=== PATIENT | female | born 1965 | race Caucasian/White ===

== ENCOUNTER 2022-03-13 19:37 | Emergency (ER) | payer BC, OTHER ==
--- OUTSIDE RECORDS SUMMARY | 2022-03-13 19:40 | XMS REPORT | Continuity of Care Document ---
:1965 Author Organization [facility] t Address [address] [place] [address] [address]. [address] [place] [address] Care Team Providers Name Role Phone YIFAN LEGER Primary Care Physician Unavailable JOANNE SUN Attending Clinician Unavailable Joanne Dumas Attending Clinician JOANNE SUN Admitting Clinician Unavailable Payers Payer Name Policy Type Policy Number Effective Date Expiration Date [id number] 00:00:00 Problems Condition Condition Condition Status Onset Resolution Last Treating Co mments Source Name Details Category Date Date Treatment Clinician Date Encounter Encounter Disease Active 2006-05 Overview: [facility] for for 05-17 Formattin ity of routine routine 00:00: g of this [place] gynecologi gynecologi 00 note Me dical aura aura might be Branch examinatio examinatio different n n from the original. 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 Allergies, Adverse Reactions, Alerts Allergy Allergy Status Severity Reaction(s) Onset Inactive Treating Comm ents Source Name Type Date Date Clinician Penicill Drug Active Other - See Uni vers ins Allergy comments 08-26 ity of 00:00: [place] 00 Medical Branch CODEINE DRUG Active Low Palpitations Uni vers INGREDI 08-26 ity of 00:00: [place] 00 Medical Branch PENICILL Drug Active Low Palpitations Un rosa INS Class 08-26 ity of 00:00: [place] [facility] [place] Social History Social Habit Start Date Stop Date Quantity Comments Source Exposure to Not sure [facility] SARS-CoV-2 (event) Medica l Branch Sex Assigned At [birth year] [facility] 00:00:00 00:00:00 [facility] Smoking Status Start Date Stop Date Source Unknown if ever smoked [facility] Medications Ordered Filled Start Stop Current Ordering Indication Dosage Frequency Signature Comments Components Source Medication Medication Date Date Medication? Clinician (SIG) Name Name morpHINE 2020-05- No 4mg 4 mg, Slow [place] injection 4 05-14 IV Push, ity of mg 00:00: 23:48 ONCE, 1 [place] 00 :00 dose, On Medical [place] Branch 03/13/21 at 1800, STAT ondansetron 2020-05- No 4mg 4 mg, Slow Univers (ZOFRAN 05-14 IV Push, ity of (PF)) 00:00: 23:48 ONCE, 1 [place] injection 4 00 :00 dose, On Medi aura mg [place] Branch 03/13/21 at 1800, LEATHA iopamidol 2020-05- No [id number] 100mL 100 mL, Univers (ISOVUE 05-13 Intravenou ity o f 370-500 mL) 22:50: 22:50 s, ONCE, 1 [place] injection 00 :00 dose, On Medica l 100 mL [place] Branch 03/13/21 at 1700, Routine Levothyroxi 2020-05 Yes Take by Un [place]sa ne 125 mcg 11 mouth. ity of capsule 18:10: [place] 46 Medical Branch pantoprazol 2020-05 Yes 40mg Take 40 mg Univers e 11 by mouth ity of (PROTONIX) 18:10: daily. [place] 40 mg EC 46 Medical tablet Branch PREMARIN 2020-05- No None Univers ORAL 05-13 Entered ity of 16:14: 00:00 [place] 24 :00 [facility] traMADoL 50 2020-05 Yes [id number] 50mg Take 1 Univ ers mg tablet 11 tablet by ity o f 00:00: mouth [place] 00 every 6 Medical (six) Branch hours as needed for Pain (scale 7-10). Indication s: acute pain ondansetron 2020-05 Yes [id number] 4mg Take 1 Univers (ZOFRAN 1-11 tablet by ity of ODT) 4 mg 00:00: mouth [place] disintegr 00 every 8 Medic al ing tablet (eight) Branch hours as needed for Nausea and Vomiting (N/V). DOCUSATE 2020- No 1 Cap Oral Un rosa CALCIUM 240 10-30 DAILY ity of MG ORAL CAP 00:00: 00:00 [place] 00 :00 Medical Branch IBUPROFEN 2020- No 1 tab PO Uni vers 600 MG ORAL 10-30 q4-6hrs ity of TAB 00:00: 00:00 prn pain [place] 00 :00 Medical Branch PROPOXYPHEN 2020- No 1 tab PO U nivers E 65 MG 10-30 q4-6hrs ity of ORAL CAP 00:00: 00:00 pr[place] pain [place] :[place] FERROUS 202- No 1 Tab Oral Uni vers SULFATE 300 10-30 TID MEALS it y of (60) MG 00:00: 00:00 [place] ORAL TAB 00 :00 Medical Branch CONJUGATED 2020- No 1 Tab Oral Univers ESTROGENS 10-30 DAILY ity of 0.3 MG ORAL 00:00: 00:00 [place] TAB 00 :00 Medical Branch Vital Signs Vital Name Observation Time Observation Value Comments Source Heart rate 2021-03-13 23:45:00 73 /min [facility] Respiratory rate 2021-03-13 23:45:00 28 /min [facility] Oxygen saturation in 2021-03-13 23:45:00 100 /min [facility] Arterial blood by [facility] Pulse oximetry Branch Systolic blood 2021-03-13 22:45:00 146 mm[Hg] [facility] Diastolic blood 2021-03-13 22:45:00 95 mm[Hg] [facility] Body temperature 2021-03-13 21:23:00 37.06 Gloria [facility] Body weight 2021-03-13 21:23:00 117.89 kg [facility] Procedures Procedure Date / Time Performed Performing Clinician Nirmala gonzalez CT ABDOMEN PELVIS W 2021-03-13 22:54:38 Joanne Sun [facility] CONTRAST [facility] URINALYSIS 2021-03-13 22:42:00 Joanne Sun [facility] LIPASE 2021-03-13 22:32:00 Joanne Sun [facility] COMP. METABOLIC PANEL 2021-03-13 22:32:00 Joanne Sun [facility] ([id number]) Medical [place] CBC WITH DIFF 2021-03-13 22:32:00 Joanne Sun [facility] NOTICE OF PRIVACY 2021-03-13 21:10:56 Doctor Unassigned, No [facility] PRACTICES Name Medical Branch Encounters Start End Encounter Admission Attending Care Care Encounter Source Date/Time Date/Time Type Type Clinicians Facility Department ID 2021-03-13 2021-03-13 [id number] Univers 15:26:00 18:20:00 [facility] 2021-03-13 2021-03-13 [facility] [id number] Univers 15:26:00 18:20:00 Joanne HERR [id number] i [facility] [id number] [facility] [id number] [place] [id number] Branch Results Test Description Test Time Test Comments Results Result Comments Source COMP. METABOLIC PANEL (31778) 2021-03-13 23:02:31 Test Item Value Reference Range Interpretation Comme nts NA (test code = 6904638261) 136 mmol/L 135-145 K (test code = 5515673023) 4.9 mmol/L 3.5-5.0 CL (test code = 2641147995) 99 mmol/L 98-108 CO2 TOTAL (test code = 9666029934) 26 mmol/L 23-31 AGAP (test code = 8195555285) 2-16 BUN (test code = 2190144009) 15 mg/dL 7-23 GLUCOSE (test code = 3568893349) 97 mg/dL 70-110 CREATININE (test code = 0.67 mg/dL 0.50-1.04 5582387590) TOTAL BILI (test code = 0.5 mg/dL 0.1-1.4 9566703677) CALCIUM (test code = 0261670731) 10.6 mg/dL 8.6-10.6 T PROTEIN (test code = 7967637189) 8.0 g/dL 6.3-8.2 ALBUMIN (test code = 4795331768) 4.5 g/dL 3.5-5.0 ALK PHOS (test code = 8990383789) 75 U/L 34-122 ALTv (test code = 1742-6) 29 U/L 5-35 AST(SGOT) (test code = 8659162341) 41 U/L 13-40 H eGFR (test code = 9667325466) mL/min/1.73m2 TRACI (test code = TRACI) Association of Glomerular Filtration Rate (GFR) and Staging of Kidney Disease* + +-------- + ------+| GFR (mL/min/1.73 m2) ?| With Kidney Damage ?| ?Without Kidney Damage+ +-- + +| ?>90 ?| ?Stage one ?| ? Normal ?+ +------- + -------+| ?60-89 ?| ?Stage two ?| ? Decreased GFR ? + +-------- + ------+| ?30-59 ?| ?Stage three ?| ? Stage three ? + +-------- + ------+| ?15-29 ?| ?Stage four ? | ? Stage four ?+ +------- + -------+| ?<15 (or dialysis) ? ?| ?Stage five ? | ? Stage five ?+ +------- + -------+ *Each stage assumes the associated GFR level has been in effect for at least three months. ?Stages 1 to 5, with or without kidney disease, indicate chronic kidney disease. Notes: Determination of stages one and two (with eGFR >59mL/min/1.73 m2) requires estimation of kidney damage for at least three months as defined by structural or functional abnormalities of the kidney, manifested by either:Pathological abnormalities or Markers of kidney damage (including abnormalities in the composition of the blood or urine or abnormalities in imaging tests). Lab Interpretation (test code = Abnormal 30741-4) [facility]10 Test Item Value Reference Range Interpretation Comments LIPASE (test code = 2100086516) 104 U/L 0-220 Lab Interpretation (test code = Normal 46462-3) [facility] WITH [id number] 22:41:06 Test Item Value Reference Range Interpretation Comments WBC (test code = See_Comment [Automated 6690-2) message] The sy stem which generated this result transmitted reference range : 4.30 - 11.10 10*3/?L. The reference range was not used to interpret this result as normal/abnormal . RBC (test code = See_Comment H [Automated 789-8) message] The sy stem which generated this result transmitted reference range : 3.93 - 5.25 10*6/?L. The reference range was not used to interpret this result as normal/abnormal . HGB (test code = 15.9 g/dL 11.6-15.0 H 718-7) HCT (test code = 48.8 % 35.7-45.2 H 4544-3) MCV (test code = 84.9 fL 80.6-95.5 787-2) MCH (test code = 27.7 pg 25.9-32.8 785-6) MCHC (test code = 32.6 g/dL 31.6-35.1 786-4) RDW-SD (test code = 41.5 fL 39.0-49.9 23923-0) RDW-CV (test code = 13.4 % 12.0-15.5 788-0) PLT (test code = See_Comment H [Automated 777-3) message] The sy stem which generated this result transmitted reference range : 166 - 358 10*3/ ?L. The reference r shemar was not used to interpret this result as normal/abnormal . MPV (test code = 10.4 fL 9.5-12.9 66951-4) NRBC/100 WBC (test See_Comment [Automat ed code = 4360287459) message] The system which generated this result transmitted reference range : 0.0 - 10.0 /100 WBCs. The refer ence range was not u sed to interpret th is result as normal/abnormal . NRBC x10^3 (test code <0.01 See_Comment [Auto mated = 9658407508) message] The s ystem which generated this result transmitted reference range : 10*3/?L. The reference range was not used to interpret this result as normal/abnormal . GRAN MAT (NEUT) % 77.1 % (test code = 770-8) IMM GRAN % (test code 0.40 % = 2347495099) LYMPH % (test code = 13.2 % 736-9) MONO % (test code = 7.1 % 5905-5) EOS % (test code = 1.4 % 713-8) BASO % (test code = 0.8 % 706-2) GRAN MAT x10^3(ANC) 7.14 10*3/uL 1.88-7.09 H (test code = 7761203693) IMM GRAN x10^3 (test 0.04 10*3/uL 0.00-0.06 code = 5207520389) LYMPH x10^3 (test code 1.22 10*3/uL 1.32-3.29 L = 731-0) MONO x10^3 (test code 0.66 10*3/uL 0.33-0.92 = 742-7) EOS x10^3 (test code = 0.13 10*3/uL 0.03-0.39 711-2) BASO x10^3 (test code 0.07 10*3/uL 0.01-0.07 = 704-7) Lab Interpretation Abnormal (test code = 31412-7) [facility]"
--- NOTE | 2022-03-13 21:31 | RAD REPORT ---
EXAM DESCRIPTION: CTStone Protocol - 03/13/2022 8:51 pm CLINICAL HISTORY: right flank pain COMPARISON: No comparisons TECHNIQUE: CT of the abdomen and pelvis was performed. All CT scans are performed using dose optimization technique as appropriate and may include automated exposure control or mA/KV adjustment according to patient size. FINDINGS: Lower chest: No acute abnormality. Circumferentially thickened distal esophagus. Liver: No acute abnormality or suspicious lesions. Biliary: No biliary ductal dilatation. Cholecystectomy Stomach: Matilda-en-Y gastric bypass. Duodenum: No significant focal abnormality. Pancreas: No significant abnormality. Spleen: No significant abnormality. Adrenal: No suspicious lesions. Kidney/ureter: Mild right-sided hydroureteronephrosis secondary to a 5 mm stone just proximal to the right UVJ. Probable wyct-[id number]-rfbcysq cysts in the left lower pole. Retroperitoneum: No retroperitoneal adenopathy. Vascular: No aneurysm. Bowel: No significant focal abnormality. Peritoneum: No ascites or free air. Bladder: Grossly unremarkable. Reproductive: No adnexal masses. Bones: No acute fracture. Other: n/a IMPRESSION: Mild right-sided hydroureteronephrosis secondary to a 5 mm stone just proximal proximal to the right UVJ.
[2022-03-13] MEDS ORDERED: TAMSULOSIN 0.4 MG SR CAP ONE (22:44)
[2022-03-13] MEDS ORDERED: NA CHLORIDE 0.9% 1,000 ML ONE (22:44)
[2022-03-13] MEDS ORDERED: HYDROMORPHONE HCL 1 MG/ML INJ ONE (22:44)
[2022-03-13] MEDS ORDERED: CEFTRIAXONE 1000 MG/VIAL ONE (22:44)
[2022-03-13 23:12] LABS: Hematocrit 41.1 % (36.0-45.0); Lymphocytes % 22.5 % (15.3-44.8); MCV 84.8 fL (80-100); RBC Red Blood Cell Count 4.85 M/uL (3.86-4.86)
[2022-03-13 23:14] LABS: Urine Blood 2+ (Negative); Urine Glucose Negative (Negative); Urine Protein Negative (Negative); Urine Specific Gravity >=1.030 (1.005-1.030); Urine pH 5.5 (5.0-7.0)
[2022-03-13 23:20] LABS: Urine Bacteria <20 /HPF (<20); Urine Crystals Unidentified Few /HPF (None Seen); Urine Mucus Slight /HPF (None Seen); Urine RBC 21-50 /HPF (None Seen)
[2022-03-13 23:25] LABS: Urine Specific Gravity/Preg >1.030 (1.005-1.030)
[2022-03-13] MEDS ORDERED: ONDANSETRON 4 MG/2 ML VIAL ONE (23:40)
[2022-03-13 23:54] LABS: Albumin 3.6 g/dL (3.4-5.0); Bilirubin Total 0.3 mg/dL (0.2-1.0); Potassium 4.3 mmol/L (3.5-5.1); Protein, Total 7.4 g/dL (6.4-8.2)
--- NOTE | 2022-03-14 00:10 | EDPHYS ---
Physician Documentation [facility] Name: Dory Salvador Age: 56 yrs Sex: Female : 1965 Arrival Date: 03/13/2022 Time: 19:40 Bed 25 Private MD: ED Physician Brandon Guevara HPI: 03/13 20:35 This 56 yrs old Female presents to ER via Ambulatory with complaints of Abdominal Pain, cp Back Pain. 20:35 The patient presents with abdominal pain right lower quadrant, right lower flank. cp Onset: The symptoms/episode began/occurred this morning, and became worse today. The symptoms radiate to right back. 20:35 Associated signs and symptoms: Pertinent positives: nausea, Pertinent negatives: blood cp in stools, chest pain, constipation, dysuria, fever, vomiting. 20:35 The symptoms are described as waxing/waning. Severity of pain: in the emergency cp department the pain has improved. Historical: - Allergies: 19:50 PENICILLINS; iw - Home Meds: 19:51 levothyroxine 112 mcg tab 2 tabs once daily [Active]; Nitro ointment - NJ [Active]; iw - PMHx: 19:51 Ulcerative Colitis; iw - Immunization history:: Adult Immunizations unknown. - Social history:: Smoking status: unknown. ROS: 20:40 Constitutional: Negative for body aches, chills, fever, poor PO intake. cp 20:40 Eyes: Negative for injury, pain, redness, and discharge. cp 20:40 ENT: Negative for drainage from ear(s), ear pain, sore throat, difficulty swallowing, difficulty handling secretions. 20:40 Cardiovascular: Negative for chest pain, edema, palpitations. 20:40 Respiratory: Negative for cough, shortness of breath, wheezing. 20:40 Abdomen/GI: Positive for abdominal pain, nausea, of the posterior aspect of right lateral abdomen and anterior aspect of right lateral abdomen, Negative for vomiting, diarrhea, constipation, anorexia. 20:40 Skin: Negative for cellulitis, rash. 20:40 Neuro: Negative for altered mental status, headache, weakness. 20:40 All other systems are negative. Exam: 20:45 Constitutional: The patient appears in no acute distress, alert, awake, cp non-diaphoretic, non-toxic, well developed, well nourished. 20:45 Head/Face: Normocephalic, atraumatic. cp 20:45 Eyes: Periorbital structures: appear normal, Conjunctiva: normal, no exudate, no injection, Sclera: no appreciated abnormality, Lids and lashes: appear normal, bilaterally. 20:45 ENT: External ear(s): are unremarkable, Nose: is normal, Mouth: Lips: moist, Oral mucosa: pink and intact, moist, Posterior pharynx: Airway: no evidence of obstruction, patent. 20:45 Chest/axilla: Inspection: normal. 20:45 Cardiovascular: Rate: normal, Rhythm: regular, Edema: is not appreciated, JVD: is not appreciated. 20:45 Respiratory: the patient does not display signs of respiratory distress, Respirations: normal, no use of accessory muscles, no retractions, labored breathing, is not present, Breath sounds: are clear throughout, no decreased breath sounds, no stridor, no wheezing. 20:45 Abdomen/GI: Inspection: abdomen appears normal, Bowel sounds: active, all quadrants, Palpation: soft, in all quadrants, moderate abdominal tenderness, in the posterior aspect of right lateral abdomen and anterior aspect of right lateral abdomen, rebound tenderness, is not appreciated, involuntary guarding, is not appreciated. 20:45 Back: CVA tenderness, is absent. 20:45 Neuro: Orientation: to person, place \T\ time. Mentation: is normal, Motor: moves all fours, strength is normal, Sensation: is normal, Gait: is steady. 23:10 ECG was reviewed by the Attending Physician. cp 23:10 Skin: cellulitis, is not appreciated, no rash present. cp Vital Signs: 19:48 BP 157 / 94; Pulse 69; Resp 18; Temp 97.9; Pulse Ox 98% on R/A; Weight 102.06 kg; iw Height 5 ft. 6 in. (167.64 cm); Pain 5/10; 23:00 BP 102 / 92; Pulse 58; Resp 18; Pulse Ox 98% on R/A; em6 19:48 Body Mass Index 36.32 (102.06 kg, 167.64 cm) iw MDM: 20:06 Patient medically screened. [facility] 03/14 00:09 Data reviewed: vital signs, nurses notes, lab test result(s), radiologic studies, CT cp scan. 00:09 Differential diagnosis: Pyelonephritis, Ureterolithiasis, urinary tract infection. cp Counseling: I had a detailed discussion with the patient and/or guardian regarding: the historical points, exam findings, and any diagnostic results supporting the discharge/admit diagnosis, lab results, radiology results, to return to the emergency department if symptoms worsen or persist or if there are any questions or concerns that arise at home. Response to treatment: the patient's symptoms have markedly improved after treatment, and as a result, I will discharge patient. 03/13 20:32 Order name: CBC with Diff; Complete Time: 23:44 cp 03/13 23:44 Interpretation: Normal except: PLT 447. 03/13 20:32 Order name: CMP; Complete Time: 23:56 03/13 23:56 Interpretation: Normal except: CL 109; GFR 89; GLOB 3.8; A/G 0.9. 03/13 20:32 Order name: Lipase; Complete Time: 23:56 03/13 23:56 Interpretation: LIP 213; Reviewed. 03/13 20:32 Order name: Urine Microscopic Only; Complete Time: 23:44 03/13 23:44 Interpretation: Normal except: URBC 21-50. 03/13 23:14 Order name: Urine Dipstick-Ancillary; Complete Time: 23:44 EDMS 03/13 23:57 Interpretation: Normal except: UBLD 2+. 03/13 23:16 Order name: Urine --Ancillary (enter results); Complete Time: 23:44 mw2 03/13 23:45 Interpretation: Reviewed. 03/13 20:32 Order name: IV Saline Lock; Complete Time: 23:07 03/13 20:32 Order name: Labs collected and sent; Complete Time: 23:07 03/13 20:32 Order name: CT Stone Protocol; Complete Time: 22:01 03/13 20:32 Order name: Urine Dipstick-Ancillary (obtain specimen); Complete Time: 23:07 03/13 20:32 Order name: Urine Test (obtain specimen); Complete Time: 23:07 03/13 22:30 Order name: PO challenge; Complete Time: 23:14 cp EC/11 23:10 Rate is 47 beats/min. Rhythm is regular. NJ interval is normal. QRS interval is normal. cp QT interval is prolonged at 512 msec. T waves are Inverted in lead aVR. Interpreted by me. Reviewed by me. Administered Medications: 23:07 Drug: Dilaudid (HYDROmorphone) 1 mg Route: IVP; Site: right antecubital; em6 03/14 00:02 Follow up: Response: No adverse reaction; RASS: Alert and Calm (0) em6 03/13 23:07 Drug: Rocephin (cefTRIAXone) 1 grams Route: IV; Rate: calculated rate; Site: right em6 antecubital; 23:30 Follow up: Response: No adverse reaction em6 23:07 Drug: Flomax (tamsulosin) 0.4 mg Route: PO; em6 23:30 Follow up: Response: No adverse reaction em6 23: Drug: NS 0.9% 1000 ml Route: IV; Rate: 500 ml/hr; Site: right antecubital; em6 03/14 00:03 Follow up: Response: No adverse reaction; IV Status: Completed infusion; IV Intake: em6 1000ml 03/13 23:41 Drug: Zofran (Ondansetron) 4 mg Route: IVP; Site: right antecubital; em6 03/14 00:03 Follow up: Response: No adverse reaction em6 Disposition Summary: 03/14/22 00:09 Discharge Ordered Location: Home cp Problem: new cp Symptoms: have improved cp Condition: Stable cp Diagnosis - Calculus of ureter - right cp Followup: cp - With: Bam Han MD - When: 2 - 3 days - Reason: Recheck today's complaints Discharge Instructions: - Discharge Summary Sheet cp - Kidney Stones cp - Renal Colic cp - Form - Excuse from Work, School, or Physical Activity cp Forms: - Medication Reconciliation Form cp - Thank You Letter cp - Antibiotic Education cp - Prescription Opioid Use cp Prescriptions: - Flomax 0.4 mg Oral capsule - take 1 capsule by ORAL route once daily for 5 days 1/2 hour following the same cp meal each day; 5 capsule; Refills: 0, Product Selection Permitted - Zofran 4 mg Oral Tablet - take 1 tablet by ORAL route every 12 hours As needed; 20 tablet; Refills: 0, cp Product Selection Permitted - Tylenol-Codeine #3 300 mg-30 mg Oral - take 2 tablet by ORAL route every 6-8 hours; 16 tablet; Refills: 0, Product cp Selection Permitted Addendum: 03/19/2022 09:54 Co-signature as Attending Physician, Brandon Guevara MD I agree with the assessment and c murphy plan of care. Signatures: Dispatcher [employer] EDBrandon Lancaster MD MD cha Williams, Irene, RN RN iw Brandon Cohn, PA PA Jackie Butler RN RN em6 Corrections: (The following items were deleted from the chart) 03/13 23:56 23:56 Normal except: CL 109; GFR 89. cp cp
--- NOTE | 2022-03-14 00:10 | ER ---
Nurse's Notes [facility] Name: Dory Salvador Age: 56 yrs Sex: Female : 1965 Arrival Date: 03/13/2022 Time: 19:40 Bed 25 Private MD: Diagnosis: Calculus of ureter-right Presentation: 03/13 19:48 Chief complaint: RLQ pain and nausea since yesterday, pain started to radiates to right iw flank this afternoon. Coronavirus screen: At this time, the client does not indicate any symptoms associated with coronavirus-19. Ebola Screen: No symptoms or risks identified at this time. Initial Sepsis Screen: Does the patient meet any 2 criteria? No. Patient's initial sepsis screen is negative. Does the patient have a suspected source of infection? No. Patient's initial sepsis screen is negative. Initial Sepsis Screen: Does the patient meet any 2 criteria?. Onset of symptoms was March 12, 2022. 19:48 Method Of Arrival: Ambulatory iw 19:48 Acuity: JAZMIN 3 iw 22:30 Risk Assessment: Do you want to hurt yourself or someone else? Patient reports no em6 desire to harm self or others. Historical: - Allergies: 19:50 PENICILLINS; iw - Home Meds: 19:51 levothyroxine 112 mcg tab 2 tabs once daily [Active]; Nitro ointment - IA [Active]; iw - PMHx: 19:51 Ulcerative Colitis; iw - Immunization history:: Adult Immunizations unknown. - Social history:: Smoking status: unknown. Screenin:30 Abuse screen: Denies threats or abuse. Nutritional screening: No deficits noted. em6 Tuberculosis screening: No symptoms or risk factors identified. Fall Risk IV access (20 points). Total Anguiano Fall Scale indicates No Risk (0-24 pts). Assessment: 22:30 General: Appears comfortable, Behavior is cooperative. Pain: Complains of pain in em6 posterior aspect of right lateral abdomen and anterior aspect of right lateral abdomen Pain does not radiate. Pain currently is 10 out of 10 on a pain scale. Quality of pain is described as sharp. Neuro: Level of Consciousness is awake, alert, obeys commands, Oriented to person, place, time, situation. Cardiovascular: Heart tones present Patient's skin is warm and dry. Rhythm is sinus rhythm. Respiratory: Airway is patent Respiratory effort is even, unlabored, Respiratory pattern is regular, symmetrical, Breath sounds are clear bilaterally. GI: Abdomen is non-distended, Bowel sounds present X 4 quads. Abd is soft and non tender X 4 quads. : No signs and/or symptoms were reported regarding the genitourinary system. EENT: No signs and/or symptoms were reported regarding the EENT system. Derm: No signs and/or symptoms reported regarding the dermatologic system. Musculoskeletal: Circulation, motion, and sensation intact. Range of motion: intact in all extremities. 23:30 Reassessment: Patient appears in no apparent distress at this time. No changes from em6 previously documented assessment. Patient and/or family updated on plan of care and expected duration. Pain level reassessed. Patient is alert, oriented x 3, equal unlabored respirations, skin warm/dry/pink. Vital Signs: 19:48 BP 157 / 94; Pulse 69; Resp 18; Temp 97.9; Pulse Ox 98% on R/A; Weight 102.06 kg; iw Height 5 ft. 6 in. (167.64 cm); Pain 5/10; 23:00 BP 102 / 92; Pulse 58; Resp 18; Pulse Ox 98% on R/A; em6 19:48 Body Mass Index 36.32 (102.06 kg, 167.64 cm) iw ED Course: 19:40 Patient arrived in ED. ss 19:50 Triage completed. iw 19:50 Arm band placed on. iw 19:57 Brandon Cohn PA is PHCP. cp 19:57 Brandon Guevara MD is Attending Physician. cp 20:52 CT Stone Protocol In Process Unspecified. EDMS 21:52 Jackie Martínez, RN is Primary Nurse. em6 22:00 Placed in gown. Bed in low position. Call light in reach. Side rails up X2. Cardiac em6 monitor on. Pulse ox on. NIBP on. Warm blanket given. 22:30 Inserted saline lock: 20 gauge in right antecubital area, using aseptic technique. em6 Blood collected. 23:14 Urine Microscopic Only Sent. em6 12 00:09 Bam Han MD is Referral Physician. cp 00:31 No provider procedures requiring assistance completed. IV discontinued, intact, tw5 bleeding controlled, No redness/swelling at site. Pressure dressing applied. Administered Medications: 03/13 23:07 Drug: Dilaudid (HYDROmorphone) 1 mg Route: IVP; Site: right antecubital; em6 11 00:02 Follow up: Response: No adverse reaction; RASS: Alert and Calm (0) em6 03/13 23:07 Drug: Rocephin (cefTRIAXone) 1 grams Route: IV; Rate: calculated rate; Site: right em6 antecubital; 23:30 Follow up: Response: No adverse reaction em6 23:07 Drug: Flomax (tamsulosin) 0.4 mg Route: PO; em6 23:30 Follow up: Response: No adverse reaction em6 23:07 Drug: NS 0.9% 1000 ml Route: IV; Rate: 500 ml/hr; Site: right antecubital; em6 03/14 00:03 Follow up: Response: No adverse reaction; IV Status: Completed infusion; IV Intake: em6 1000ml 03/13 23:41 Drug: Zofran (Ondansetron) 4 mg Route: IVP; Site: right antecubital; em6 03/14 00:03 Follow up: Response: No adverse reaction em6 Medication: 00:31 VIS not applicable for this client. tw5 Intake: 00:03 IV: 1000ml; Total: 1000ml. em6 Outcome: 00:09 Discharge ordered by . jenny 00:31 Discharged to home ambulatory, with family. tw5 00:31 Condition: improved 00:31 Discharge instructions given to patient, Instructed on discharge instructions, follow up and referral plans. medication usage, Demonstrated understanding of instructions, follow-up care, wound care, Prescriptions given X 3. 00:31 Patient left the ED. tw5 Signatures: Dispatcher [employer] EDMS Maria Del Carmen Alegria RN RN Sravanthi Montemayor RN RN ss Page, Corey, PA PA cp Wood, Tiffany tw5 Jackie Martínez RN RN em6 Corrections: (The following items were deleted from the chart) 00:02 03/13 23:30 Response: No adverse reaction em6 em6
[2022-03-14 01:13] VITALS: TEMP 97.9; O2SAT 98
[2022-03-14 01:15] VITALS: BP 102/92
--- NOTE | 2022-03-17 08:28 | EKG ---
Test Date: 2022-03-13 Test Time: 23:03:35 Vice President Education: MEASUREMENT RESULTS: Intervals: Rate: 47 MD: 182 QRSD: 88 QT: 512 QTc: 453 [place]: P: 48 MD: 182 QRS: 36 T: 60 INTERPRETIVE STATEMENTS: Sinus bradycardia Possible Anterior infarct, age undetermined Abnormal ECG Compared to ECG 06/24/2008 09:42:49 Myocardial infarct finding now present Sinus rhythm no longer present Electronically Signed On 03-17-22 08:20:47 CAPACITY PLANNING ENGINEER by Gonzalez Jeffers
== END 2022-03-14 00:31 | disposition home or self-care (01) ==
LOC: ER 19:37
DX: N20.1 Calculus of ureter (principal); Z88.0 Allergy status to penicillin
CPT/HCPCS: 96361; 93005; 85025; 36415; 81025; 83690; 80053; 76377; 74176; 96375; 96374; 99284; J1170; J7030; J2405; 81003; 81015

== ENCOUNTER 2022-04-14 18:19 | Emergency (ER) | payer OTHER ==
--- OUTSIDE RECORDS SUMMARY | 2022-04-14 18:22 | XMS REPORT | Continuity of Care Document ---
:[address] [facility] t Address [address] [place] [address] Care Team Providers Name Role Phone YIFAN LEGER Primary Care Physician Unavailable JEWEL SALAMANCA Attending Clinician Unavailable JOMAR SUN Attending Clinician Unavailable Jomar Dumas Attending Clinician JOMAR SUN Admitting Clinician Unavailable Payers Payer Name Policy Type Policy Number Effective Date Expiration Date S izzy [facility] [id number] 2019 00:00:00 Problems Condition Condition Condition Status Onset Resolution Last Treating Co mments Source Name Details Category Date Date Treatment Clinician Date Encounter Encounter Disease Active 2006-05 Overview: Univers for for 05-17 Formattin ity of routine routine 00:00: g of this [place] gynecologi gynecologi 00 note Me dical aura aura might be Branch examinatio examinatio different n n from the original. 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 Utility [id number] Renal Problem Common colic on [facility] right side [facility] [id number] Hydronephr Problem Com mon osis, [facility] right [facility] [id number] Ureterolit Problem Com mon hiasis [facility] [id number] Kidney Problem Common stone [facility] Allergies, Adverse Reactions, Alerts Allergy Allergy Status Severity Reaction(s) Onset Inactive Treating Comm ents Source Name Type Date Date Clinician Penicill Drug Active Other - See Uni vers ins Allergy comments 08-26 ity of 00:00: [place] 00 [facility] Branch CODEINE DRUG Active Low Palpitations Uni vers INGREDI 08-26 ity of 00:00: [place] 00 Medical [place] PENICILL Drug Active Low Palpitations Un rosa INS Class 08-26 ity of :00: 00 [facility] penicill penicill Active Unknown Commo n in V in V [facility] Social History Social Habit Start Date Stop Date Quantity Comments Source History of Tobacco Use Co mmon [facility] Sex Assigned At Com [facility] Exposure to SARS-CoV-2 Not sure [facility] [place] (event) [facility] Smoking Status Start Date Stop Date Source Unknown if ever smoked Universit y [facility] Former Smoker 2022-04-08 00:00:00 2022-04-08 00:00:00 [facility] nter Medications Ordered Filled Start Stop Current Ordering [...] 03/13/21 at 1800, LEATHA iopamidol 2020-05- No [id number] 100mL 100 mL, Univers (ISOVUE 05-13 Intravenou ity o f 370-500 mL) 22:50: 22:50 s, ONCE, 1 [place] injection 00 :00 dose, On Medica l 100 mL [place] Branch 03/13/21 at 1700, Routine Levothyroxi 2020-05 Yes Take by Uni vers ne 125 mcg -11 mouth. ity of capsule 18:10: [place] 46 Medical Branch pantoprazol 2020-05 Yes 40mg Take 40 mg Univers e 11 by mouth ity of (PROTONIX) 18:10: daily. [place] 40 mg EC 46 Medical tablet Branch PREMARIN 2020-05- No None Univers ORAL 05-13 Entered ity of 16:14: 00:00 [place] 24 :00 Medical Branch traMADoL 50 2020-05 Yes [id number] 50mg Take 1 Univ ers mg tablet 05-13 tablet by ity o f 00:00: mouth [place] 00 every 6 Medical (six) Branch hours as needed for Pain (scale 7-10). Indication s: acute pain ondansetron 2020-05 Yes [id number] 4mg Take 1 Univers (ZOFRAN 05-13 tablet by ity of ODT) 4 mg 00:00: mouth [place] disintegrat 00 every 8 Medic al ing tablet [...] [place] Branch FERROUS 2020- No 1 Tab Oral Uni vers SULFATE 300 10-30 TID MEALS it y of (60) MG 00:00: 00:00 [place] ORAL TAB 00 :00 Medical Branch CONJUGATED 2020- No 1 Tab Oral Univers ESTROGENS 6-30 11-11 DAILY ity of 0.3 MG ORAL 00:00: 00:00 [place] TAB 00 :00 Medical Branch Levothyroxi Levothyroxi No Levothyrox ne Sodium ne Sodium ine Sodium Flomax Flomax No Flomax LISINOPRIL LISINOPRIL No LISINOPRIL Nitroglycer Nitroglycer No Nitroglyce in in rin tramadol tramadol No tramadol Nitroglycer Nitroglycer No Nitroglyce in in rin LISINOPRIL LISINOPRIL No LISINOPRIL Levothyroxi Levothyroxi No Levothyrox ne Sodium ne Sodium ine Sodium tramadol tramadol No tramadol Flomax Flomax No Flomax Vital Signs Vital Name Observation Time Observation Value Comments Source height 2022-04-08 16:00:00 66 [in_i] [facility] weight 2022-04-08 16:00:00 222 [lb_av] [facility] temperature 2022-04-08 16:00:00 98.6 [degF] [facility] bmi 2022-04-08 16:00:00 35.83 kg/m2 [facility] oximetry 2022-04-08 16:00:00 98 % [facility] respiratory rate 2022-04-08 16:00:00 18 /min Comm on [facility] blood pressure 2022-04-08 16:00:00 136 mm[Hg] [facility] - systolic [facility] blood pressure 2022-04-08 16:00:00 87 mm[Hg] [facility] - diastolic [facility] height 2022-03-18 16:15:00 66 [in_i] [facility] weight 2022-03-18 16:15:00 231.8 [lb_av] [facility] temperature 2022-03-18 16:15:00 98.1 [degF] [facility] bmi 2022-03-18 16:15:00 37.41 kg/m2 [facility] oximetry 2022-03-18 16:15:00 98 % Common S pirit - [facility] respiratory rate 2022-03-18 16:15:00 18 /min Comm on [facility] blood pressure 2022-03-18 16:15:00 166 mm[Hg] [facility] - systolic [facility] blood pressure 2022-03-18 16:15:00 85 mm[Hg] [facility] - diastolic [facility] Heart rate 2021-03-13 23:45:00 73 /min [facility] Respiratory rate 2021-03-13 23:45:00 28 /min [facility] Oxygen saturation in 2021-03-13 23:45:00 100 /min [facility] Arterial blood by [facility] Pulse oximetry Branch Systolic blood 2021-03-13 22:45:00 146 mm[Hg] [facility] Diastolic blood 2021-03-13 22:45:00 95 mm[Hg] [facility] Body temperature 2021-03-13 21:23:00 37.06 Gloria [facility] Body weight 2021-03-13 21:23:00 117.89 kg [facility] Procedures Procedure Date / Time Performed Performing Clinician Nirmala gonzalez CT ABDOMEN PELVIS W 2021-03-13 22:54:38 Jomar Sun [facility] CONTRAST [facility] URINALYSIS 2021-03-13 22:42:00 Jomar Sun [facility] LIPASE 2021-03-13 22:32:00 Jomar Sun [facility] COMP. METABOLIC PANEL 2021-03-13 22:32:00 Jomar Sun [facility] ([id number]) [facility] CBC WITH DIFF 2021-03-13 22:32:00 Jomar Sun [facility] NOTICE OF PRIVACY 2021-03-13 21:10:56 Doctor Unassigned, No Univ [facility] PRACTICES Name Medical Branch Encounters Start End Encounter Admission Attending Care Care Encounter Source Date/Time Date/Time Type Type Clinicians Facility Department ID 2022-03-[address] [facility] [id number] Common 15:00:05 JEWEL [id number] [facility] 2022-04-08 2022-04-08 OFFICE STLMLC STLC [id number] Co mmon 00:00:00 00:00:00 VISIT EST Spir it PT LEVEL 3 - [facility] 2022-03-18 2022-03-18 OFFICE STLMLC STLMLC [id number] Co mmon 00:00:00 00:00:00 VISIT NEW Spir it PT LEVEL 3 - [facility] 2021-03-13 2021-03-[address] [facility] ERT [id number] Univers 15:26:00 18:20:00 JOMAR jeronimoy of [facility] 2021-03-13 2021-03-13 Emergency [facility] [id number] Univers 15:26:00 18:20:00 Jomar Olguin [place] [id number] i ty [facility] [id number] [facility] [id number] [address] Results Test Description Test Time Test Comments Results Result Comments Source COMP. METABOLIC PANEL (21225) 2021-03-13 23:02:31 Test Item Value Reference Range Interpretation Comme nts NA (test code = 8758835522) 136 mmol/L 135-145 K (test code = 7674835171) 4.9 mmol/L 3.5-5.0 CL (test code = 3696415529) 99 mmol/L 98-108 CO2 TOTAL (test code = 4166300889) 26 mmol/L 23-31 AGAP (test code = 9060355752) 2-16 BUN (test code = 0846138142) 15 mg/dL 7-23 GLUCOSE (test code = 8428579696) 97 mg/dL 70-110 CREATININE (test code = 0.67 mg/dL 0.50-1.04 9233059918) TOTAL BILI (test code = 0.5 mg/dL 0.1-1.7 6010192284) CALCIUM (test code = 6383971869) 10.6 mg/dL 8.6-10.6 T PROTEIN (test code = 5547894792) 8.0 g/dL 6.3-8.2 ALBUMIN (test code = 9207851414) 4.5 g/dL 3.5-5.0 ALK PHOS (test code = 6092522140) 75 U/L 34-122 ALTv (test code = 1742-6) 29 U/L 5-35 AST(SGOT) (test code = 8682531707) 41 U/L 13-40 H eGFR (test code = 9603768988) mL/min/1.73m2 TRACI (test code = TRACI) Association [...] tests). Lab Interpretation (test code = Abnormal 13593-7) [facility] Test Item Value Reference Range Interpretation Comments LIPASE (test code = 7221200807) 104 U/L 0-220 Lab Interpretation (test code = Normal 63757-5) [facility] [id number] 22:41:06 Test Item Value Reference Range Interpretation [...] RDW-SD (test code = 41.5 fL 39.0-49.9 46202-1) RDW-CV (test code = 13.4 % 12.0-15.5 788-0) PLT (test code = See_Comment H [Automated 777-3) message] The sy stem which generated this result transmitted reference range : 166 - 358 10*3/ ?L. The reference r shemar was not used to interpret this result as normal/abnormal . MPV (test code = 10.4 fL 9.5-12.9 52618-2) NRBC/100 WBC (test See_Comment [Automat ed code = 9953254771) message] The system which generated this result transmitted reference range : 0.0 - 10.0 /100 WBCs. The refer ence range was not u sed to interpret th is result as normal/abnormal . NRBC x10^3 (test code <0.01 See_Comment [Auto mated = 4179439306) message] The s ystem which generated this result transmitted reference range : 10*3/?L. The reference range was not used to interpret this result as normal/abnormal . GRAN MAT (NEUT) % 77.1 % (test code = 770-8) IMM GRAN % (test code 0.40 % = 8312595806) LYMPH % (test code = 13.2 % 736-9) MONO % (test code = 7.1 % 5905-5) EOS % (test code = 1.4 % 713-8) BASO % (test code = 0.8 % 706-2) GRAN MAT x10^3(ANC) 7.14 10*3/uL 1.88-7.09 H (test code = 5148475343) IMM GRAN x10^3 (test 0.04 10*3/uL 0.00-0.06 code = 3097637740) LYMPH x10^3 (test code 1.22 10*3/uL 1.32-3.29 L = 731-0) MONO x10^3 (test code 0.66 10*3/uL 0.33-0.92 = 742-7) EOS x10^3 (test code = 0.13 10*3/uL 0.03-0.39 711-2) BASO x10^3 (test code 0.07 10*3/uL 0.01-0.07 = 704-7) Lab Interpretation Abnormal (test code = 77010-6) [facility]"
[2022-04-14] MEDS ORDERED: NA CHLORIDE 0.9% 1,000 ML ONE (19:32)
[2022-04-14] MEDS ORDERED: ONDANSETRON 4 MG/2 ML VIAL ONE (19:32)
[2022-04-14] MEDS ORDERED: KETOROLAC 30 MG/ML INJ ONE (19:32)
[2022-04-14 19:37] LABS: Absolute Lymphocytes (CBC) 1.6 K/uL (0.7-4.9); Hematocrit 43.6 % (36.0-45.0); Lymphocytes % 21.9 % (15.3-44.8); MCV 85.6 fL (80-100); MPV 8.4 fL (7.6-11.3); RBC Red Blood Cell Count 5.09 M/uL (3.86-4.86)
[2022-04-14] MEDS ORDERED: MAGNESIUM SULFATE 1 gm IVPB 1 GM/100 ML BAG IV ONE (20:03)
[2022-04-14] MEDS ORDERED: TAMSULOSIN 0.4 MG SR CAP ONE (20:03)
[2022-04-14 20:17] LABS: Potassium 3.9 mmol/L (3.5-5.1)
--- NOTE | 2022-04-14 20:35 | RAD REPORT ---
EXAM DESCRIPTION: CT - Abdomen Pelvis Wo Contrast - 04/14/2022 8:19 pm CLINICAL HISTORY: Abdominal pain. Right flank pain COMPARISON: Stone Protocol dated 03/13/2022 TECHNIQUE: CT imaging of the abdomen and pelvis was performed without contrast. Solid organ, bowel a nd vascular assessment is limited due to lack of IV and oral contrast. All CT scans are performed using dose optimization technique as appropriate and may include automated exposure control or mA/KV adjustment according to patient size. FINDINGS: The lower lung anderson are clear.Postsurgical changes are present about the stomach with a small hiatal hernia. Cholecystectomy clips. The liver, spleen, pancreas, adrenal glands are within normal limits for a limited non-contrast exami nation.18 mm cyst with a small internal calcification is seen posterior cortex left kidney inferiorly . Moderate right hydronephrosis and hydroureter is present caused by 5 mm stone at the right UVJ. No bowel obstruction, free air, free fluid or abscess. The appendix is normal. The osseous structures are within normal limits. IMPRESSION: 5 mm stone at the right UVJ resulting in moderate right hydronephrosis and hydroureter. A limited non-contrast examination was performed as detailed.
[2022-04-14] MEDS ORDERED: MORPHINE 4 MG/ML SYR ONE (21:42)
--- NOTE | 2022-04-14 21:52 | ER ---
Nurse's Notes [facility] Name: Dory Salvador Age: 56 yrs Sex: Female : 1965 Arrival Date: 04/14/2022 Time: 18:21 Bed 2 Private MD: Diagnosis: Calculus of ureter Presentation: 04/14 18:30 Chief complaint: Patient states: right flank pain; known 5mm stone due for surgery jh5 however pain with frequency has come back x2 days. Coronavirus screen: Vaccine status: Patient reports receiving the 2nd dose of the covid vaccine. Client denies travel out of the [place] in the last 14 days. Ebola Screen: Patient negative for fever greater than or equal to 101.5 degrees Fahrenheit, and additional compatible Ebola Virus Disease symptoms Patient denies exposure to infectious person. Patient denies travel to an Ebola-affected area in the 21 days before illness onset. Initial Sepsis Screen: Does the patient meet any 2 criteria? No. Patient's initial sepsis screen is negative. Does the patient have a suspected source of infection? No. Patient's initial sepsis screen is negative. Risk Assessment: Do you want to hurt yourself or someone else? Patient reports no desire to harm self or others. 18:30 Method Of Arrival: Ambulatory [facility] 18:30 Acuity: JAZMIN 3 jh5 Triage Assessment: 18:31 General: Appears in no apparent distress. uncomfortable, Behavior is calm, cooperative, 5 appropriate for age. Pain: Complains of pain in right flank. Historical: - Allergies: 18:31 PENICILLINS; jh5 - PMHx: 18:31 ulcerative colitis; kidney stone; Hypertensive disorder; 5 - Immunization history:: Adult Immunizations up to date. - Social history:: Smoking status: Reported history of juuling and/or vaping. Screenin:18 Abuse screen: Denies threats or abuse. Nutritional screening: No deficits noted. jb4 Tuberculosis screening: No symptoms or risk factors identified. Fall Risk No fall in past 12 months (0 pts). IV access (20 points). Total Anguiano Fall Scale indicates No Risk (0-24 pts). 19:18 [facility] ED Fall Risk Assessment (Adult) History of falling in the last 3 months, jb4 including since admission No falls in past 3 months (0 pts) Confusion or Disorientation No (0 pts) Intoxicated or Sedated No (0 pts) Impaired Gait No (0 pts) Mobility Assist Device Used No (0 pt) Altered Elimination No (0 pt) Score/Fall Risk Level 0 - 2 = Low Risk. Assessment: 19:18 General: Appears in no apparent distress. comfortable, Behavior is calm, cooperative, jb4 appropriate for age. Pain: Complains of pain in right mid back Pain does not radiate. Pain currently is 8 out of 10 on a pain scale. Neuro: Level of Consciousness is awake, alert, obeys commands, Oriented to person, place, time, situation. Cardiovascular: Patient's skin is warm and dry. Respiratory: Airway is patent Respiratory effort is even, unlabored, Respiratory pattern is regular, symmetrical. GI: No signs and/or symptoms were reported involving the gastrointestinal system. : No signs and/or symptoms were reported regarding the genitourinary system. EENT: No signs and/or symptoms were reported regarding the EENT system. Derm: Skin is intact, Skin is pink, warm \T\ dry. Musculoskeletal: Circulation, motion, and sensation intact. Range of motion: intact in all extremities. 20:30 Reassessment: Patient appears in no apparent distress at this time. Patient and/or jb4 family updated on plan of care and expected duration. Pain level reassessed. Patient is alert, oriented x 3, equal unlabored respirations, skin warm/dry/pink. 22:06 Reassessment: Patient appears in no apparent distress at this time. Patient and/or jb4 family updated on plan of care and expected duration. Pain level reassessed. Patient is alert, oriented x 3, equal unlabored respirations, skin warm/dry/pink. Vital Signs: 18:30 BP 148 / 77; Pulse 76; Resp 18; Temp 98.8; Pulse Ox 98% ; Weight 99.79 kg; Height 5 ft. 5 6 in. (167.64 cm); Pain 10/10; 20:30 BP 113 / 96; Pulse 63; Resp 16; Pulse Ox 100% on R/A; jb4 22:00 BP 125 / 86; Pulse 55; Resp 16; Pulse Ox 98% on R/A; jb4 18:30 Body Mass Index 35.51 (99.79 kg, 167.64 cm) [facility] ED Course: 18:21 Patient arrived in ED. as 18:21 Pb Carney DO is Attending Physician. ms3 18:31 Triage completed. jh5 18:31 Arm band placed on right wrist. jh5 19:06 Attending Physician role handed off by Pb Carney DO rn 19:06 Brendan Lozano MD is Attending Physician. rn 19:18 Patient has correct armband on for positive identification. Placed in gown. Bed in low jb4 position. Call light in reach. Side rails up X 1. Client placed on continuous cardiac and pulse oximetry monitoring. NIBP monitoring applied. 19:18 Initial lab(s) drawn, by me, sent to lab. Inserted saline lock: 18 gauge in right jb4 antecubital area, using aseptic technique. Blood collected. 20:21 CT Abd/Pelvis - Without Contrast In Process Unspecified. EDMS 20:33 Ronny Pop, RN is Primary Nurse. jb4 21:51 Bam Han MD is Referral Physician. rn 22:08 No provider procedures requiring assistance completed. IV discontinued, intact, jb4 bleeding controlled, No redness/swelling at site. Pressure dressing applied. Administered Medications: 19:43 Drug: NS 0.9% 1000 ml Route: IV; Rate: 1 bolus; Site: right antecubital; jb4 20:45 Follow up: Response: No adverse reaction; IV Status: Completed infusion; IV Intake: jb4 1000ml 19:43 Drug: Zofran (Ondansetron) 4 mg Route: IVP; Site: right antecubital; jb4 20:15 Follow up: Response: No adverse reaction; Marked relief of symptoms jb4 19:43 Drug: Ketorolac 10 mg Route: IVP; Site: right antecubital; jb4 20:15 Follow up: Response: No adverse reaction; Marked relief of symptoms; Pain is decreased jb4 20:11 Drug: Flomax (tamsulosin) 0.4 mg Route: PO; jb4 22:09 Follow up: Response: No adverse reaction jb4 20:33 Drug: Magnesium Sulfate 1 grams Route: IVPB; Infused Over: 1 hrs; Site: right jb4 antecubital; 21:33 Follow up: Response: No adverse reaction; IV Status: Completed infusion; IV Intake: jb4 100ml 21:49 Drug: morphine 4 mg Route: IVP; Infused Over: 4 mins; Site: right antecubital; jb4 22:09 Follow up: Response: No adverse reaction; Marked relief of symptoms; Pain is decreased jb4 Medication: 22:00 VIS not applicable for this client. jb4 Intake: 20:45 IV: 1000ml; Total: 1000ml. jb4 21:33 IV: 100ml; Total: 1100ml. jb4 Outcome: 21:51 Discharge ordered by . rn 22:08 Discharged to home ambulatory. jb4 22:08 Condition: stable 22:08 Discharge instructions given to patient, Instructed on discharge instructions, follow up and referral plans. Demonstrated understanding of instructions, follow-up care. 22:10 Patient left the ED. jb4 Signatures: Dispatcher [employer] EDMS Lucy Martínez Roman, MD MD rn Bryson, James, RN RN jb4 Pb Carney DO DO ms3 Jennifer Oviedo RN RN jh5
--- NOTE | 2022-04-14 21:52 | EDPHYS ---
Physician Documentation [facility] Name: Dory Salvador Age: 56 yrs Sex: Female : 1965 Arrival Date: 04/14/2022 Time: 18:21 Bed 2 Private MD: ED Physician Brendan Lozano HPI: 04/14 18:34 This 56 yrs old Female presents to ER via Ambulatory with complaints of Flank Pain. ms3 18:34 The patient complains of pain in the right mid back. The pain does not radiate. Onset: ms3 The symptoms/episode began/occurred acutely, 3 day(s) ago. Modifying factors: The symptoms are alleviated by nothing. the symptoms are aggravated by nothing. Associated signs and symptoms: Pertinent positives: dysuria, fever, urinary frequency, nausea, Pertinent negatives: vomiting. Severity of pain: At its worst the pain was moderate in the emergency department the pain is unchanged. Patient states she was diagnosed with 5 mm right-sided kidney stone in March. Patient has followed up with Dr. Han. Patient was called for preop appointment and notified the RN that she was having right-sided flank pain. Patient was advised to go to the emergency department for possible obstructing stone. Historical: - Allergies: 18:31 PENICILLINS; jh5 - PMHx: 18:31 ulcerative colitis; kidney stone; Hypertensive disorder; jh5 - Immunization history:: Adult Immunizations up to date. - Social history:: Smoking status: Reported history of juuling and/or vaping. ROS: 18:34 Constitutional: Negative for fever, and chills. Neck: Negative for injury, pain, and ms3 swelling, Cardiovascular: Negative for chest pain, and palpitations. Respiratory: Negative for shortness of breath, cough, wheezing, and pleuritic chest pain. 18:34 MS/Extremity: Negative for injury and deformity, Skin: Negative for injury, rash, and discoloration. 18:34 Back: Positive for flank pain. 18:34 All other systems are negative. Exam: 18:34 Constitutional: This is a well developed, well nourished patient who is awake, alert, ms3 and in no acute distress. Head/Face: Normocephalic, atraumatic. Neck: Trachea midline, no cervical lymphadenopathy. Supple, full range of motion without nuchal rigidity, or vertebral point tenderness. No Meningismus. Chest/axilla: Normal chest wall appearance and motion. Nontender with no deformity. Cardiovascular: Regular rate and rhythm with a normal S1 and S2. No gallops, murmurs, or rubs. Normal PMI, no JVD. No pulse deficits. Respiratory: Lungs have equal breath sounds bilaterally, clear to auscultation and percussion. No rales, rhonchi or wheezes noted. No increased work of breathing, no retractions or nasal flaring. Abdomen/GI: Soft, non-tender, with normal bowel sounds. No distension or tympany. No guarding or rebound. No evidence of tenderness throughout. 18:34 Back: CVA tenderness, is noted on the right. Vital Signs: 18:30 BP 148 / 77; Pulse 76; Resp 18; Temp 98.8; Pulse Ox 98% ; Weight 99.79 kg; Height 5 ft. jh5 6 in. (167.64 cm); Pain 10/10; 20:30 BP 113 / 96; Pulse 63; Resp 16; Pulse Ox 100% on R/A; jb4 22:00 BP 125 / 86; Pulse 55; Resp 16; Pulse Ox 98% on R/A; jb4 18:30 Body Mass Index 35.51 (99.79 kg, 167.64 cm) jh5 MDM: 18:34 Differential diagnosis: nephrolithiasis, pyelonephritis, UTI. ms3 18:39 Patient medically screened. ms3 20:51 ED course: Called Dr. Han, no answer, left message. . rn 21:24 Data reviewed: vital signs, nurses notes, lab test result(s), radiologic studies, CT rn scan, and as a result, I will discharge patient. Counseling: I had a detailed discussion with the patient and/or guardian regarding: the historical points, exam findings, and any diagnostic results supporting the discharge/admit diagnosis, lab results, radiology results, the need for outpatient follow up, to return to the emergency department if symptoms worsen or persist or if there are any questions or concerns that arise at home. Response to treatment: the patient's symptoms have mildly improved after treatment, and as a result, I will discharge patient. Special discussion: I discussed with the patient/guardian in detail that at this point there is no indication for admission to the hospital. It is understood, however, that if the symptoms persist or worsen the patient needs to return immediately for re-evaluation. Based on the history and exam findings, there is no indication for further emergent testing or inpatient evaluation. I discussed with the patient/guardian the need to see the urologist for further evaluation of the symptoms. ED course: Discussed case with Dr. Han, pain better controlled, normal WBC, has not changed on imaging, wants her to f/u as scheduled tomorrow and will reeval her need for more urgent intervention. Pt states has tramadol at home and declines tylenol with codeine prescription. Return precautions given and understood. . 04/14 18:33 Order name: CBC with Diff; Complete Time: 19:59 ms3 04/14 18:34 Order name: CT Abd/Pelvis - Without Contrast; Complete Time: 20:36 ms3 04/14 19:59 Order name: BMP; Complete Time: 20:22 rn 04/14 18:33 Order name: IV Saline Lock; Complete Time: 19:43 ms3 04/14 18:33 Order name: Labs collected and sent; Complete Time: 19:43 ms3 Administered Medications: 19:43 Drug: NS 0.9% 1000 ml Route: IV; Rate: 1 bolus; Site: right antecubital; jb4 20:45 Follow up: Response: No adverse reaction; IV Status: Completed infusion; IV Intake: jb4 1000ml 19:43 Drug: Zofran (Ondansetron) 4 mg Route: IVP; Site: right antecubital; jb4 20:15 Follow up: Response: No adverse reaction; Marked relief of symptoms jb4 19:43 Drug: Ketorolac 10 mg Route: IVP; Site: right antecubital; jb4 20:15 Follow up: Response: No adverse reaction; Marked relief of symptoms; Pain is decreased jb4 20:11 Drug: Flomax (tamsulosin) 0.4 mg Route: PO; jb4 22:09 Follow up: Response: No adverse reaction jb4 20:33 Drug: Magnesium Sulfate 1 grams Route: IVPB; Infused Over: 1 hrs; Site: right jb4 antecubital; 21:33 Follow up: Response: No adverse reaction; IV Status: Completed infusion; IV Intake: jb4 100ml 21:49 Drug: morphine 4 mg Route: IVP; Infused Over: 4 mins; Site: right antecubital; jb4 22:09 Follow up: Response: No adverse reaction; Marked relief of symptoms; Pain is decreased jb4 Disposition Summary: 04/14/22 21:51 Discharge Ordered Location: Home rn Problem: an ongoing problem rn Symptoms: have improved rn Condition: Stable rn Diagnosis - Calculus of ureter rn Followup: rn - With: Bam Han MD - When: Tomorrow - Reason: Recheck today's complaints, Re-evaluation by your physician Discharge Instructions: - Discharge Summary Sheet rn - Kidney Stones rn - Renal Colic rn Forms: - Medication Reconciliation Form rn - Thank You Letter rn - Antibiotic rn ccu - Prescription Opioid Use rn Signatures: Dispatcher [employer] EDMS Brendan Lozano MD MD rn Bryson, James RN RN jb4 Pb Carney DO DO ms3 Jennifer Oviedo RN RN jh5 Corrections: (The following items were deleted from the chart) 21:27 18:33 Urine Dipstick-Ancillary ordered. ms3 jb4 21:30 18:33 UA MICROSCOPIC+U.LAB.BRZ ordered. EDMS EDMS
[2022-04-14 22:27] VITALS: TEMP 98.8
[2022-04-14 22:29] VITALS: BP 125/86; O2SAT 98
== END 2022-04-14 22:10 | disposition home or self-care (01) ==
LOC: ER 18:19
DX: N20.1 Calculus of ureter (principal); I10 Essential (primary) hypertension; Z88.0 Allergy status to penicillin; Z87.442 Personal history of urinary calculi
CPT/HCPCS: 85025; 80048; 36415; 74176; J3475; J7030; J2405; 96361; 96365; 96375; 99284

== ENCOUNTER 2022-04-16 10:41 | Day surgery (SDC) | payer OTHER ==
[~2022-04-16 10:41] MED LIST: CLINDAMYCIN 600MG/D5W 600 MG/50 ML BAG IV ONE
[2022-04-16] MEDS ORDERED: Ringers Lactate 1,000 ML IV ONE (11:08)
[2022-04-16] MEDS ORDERED: ONDANSETRON 4 MG/2 ML VIAL ONE ×2 (12:14→12:38)
[2022-04-16] MEDS ORDERED: SCOPOLAMINE HYDROBROMIDE PATCH TD ONE (12:14)
[2022-04-16] MEDS ORDERED: KETOROLAC 30 MG/ML INJ ONE (12:37)
[2022-04-16] MEDS ORDERED: MIDAZOLAM HCL 2 MG/2 ML INJ ONE (12:37)
[2022-04-16] MEDS ORDERED: LIDOCAINE 1% MPF 5 ML VIAL ONE (12:37)
[2022-04-16] MEDS ORDERED: propofoL 200 MG/20 ML VIAL IV ONE (12:37)
[2022-04-16] MEDS ORDERED: FENTANYL CITR 100 MCG/2 ML ONE (12:37)
[2022-04-16] MEDS ORDERED: dexAMETHasone 10 MG/ML VIAL ONE (12:37)
[2022-04-16] MEDS: Gentamicin Inj 200 MG in NA CHLORIDE 0.9% 100 ML IV ONE ×2 (12:50→12:54)
[2022-04-16] MEDS ORDERED: HYDROMORPHONE HCL 1 MG/ML INJ ONE (13:11)
[2022-04-16] MEDS ORDERED: Mastisol Adhesive Liq ONE (13:26)
[2022-04-16] MEDS ORDERED: CODEINE 30MG/APAP 300MG TAB PO PRN (13:47)
[2022-04-16] MEDS ORDERED: PHENAZOPYRIDINE 100MG TAB PO ONE (13:47)
[2022-04-16 13:56] VITALS: O2SAT 99
--- NOTE | 2022-04-16 13:58 | OP ---
Surgeon: JESSY WILKERSON Preoperative Diagnoses: 1.Right obstructive ureterolithiasis. 2.Right flank pain. Postoperative Diagnoses: 1.Right obstructive ureterolithiasis. 2.Right flank pain. 3.Right hydronephrosis. 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 Principal Procedures: 1.Cystoscopy and foreign body extraction. 2.Right retrograde pyelography. 3.Right ureteral stent placement. Indication For Procedure: Ms. Salvadro presented to the [facility]rology [facility] initially several weeks ago wi th an obstructing right ureteral calculus around 5 to 6 mm in diameter. She was given a trial of [place], but unfortunately had progressive worsening of her pain that occurred intermittently and result ed in an another emergency department visit. As a result, she was counseled on options for managemen t of the pain and preparation for definitive management with expected ureteroscopy with laser lithotr ipsy. She elected to undergo stent placement, which was scheduled for today. Procedure In Detail: The patient was consented in the preoperative holding area before being transfe rred to operative suite where general anesthesia was induced. She was given clindamycin and gentamic in 2 to 3 mg/kg IV antimicrobial prophylaxis and pneumo boots were provided for DVT prophylaxis. She was placed in the lithotomy position, padded and secured to the table appropriately and her genitali a were prepped with Hibiclens before being draped in standard fashion. The case was begun using a 22 -Lebanese rigid cystoscope to traverse the urethra and into the bladder. The bladder was surveyed in i ts entirety, and within the dome anteriorly in the region of the umbilicus, there was a small cystic area of urachal remnant noted. Additionally, at the right ureteral orifice was the previous ly noted ureteral calculus. As a result, I utilized the cold cup biopsy forceps to grasp the uretera l stone and was able to remove a part of it. The stone was easily fragmented and thus only part of t he stone was removed. I thus was able to navigate the jaws of the biopsy forceps further into the ur eteral orifice and grasped more of the stone fragmenting some that was remnant within. Because I cou ld not be certain, I completely eliminated all of the stone within the ureteral orifice, I passed a S ensor wire with a 5-Lebanese ureteral access catheter into the distal ureter and performed a retrograde pyelogram. Right retrograde pyelography: Using a 70:30 mixture of Omnipaque and saline, contrast was injected via the lumen of the 5-Lebanese ur eteral access catheter and did propagate up the distal into the mid and proximal ureter with evidence of ureteral nephrosis and pelvocaliectasis suggestive of known obstruction. This obstruction extend ed down to the level of the UVJ. As a result, I passed the Sensor wire into the upper pole collectin g system as observed fluoroscopically and passed a 6-Lebanese by 26 cm double-J stent over the wire coi ling it within the upper pole of the kidney and performing a cystoscopic coil within the bladder. Th e stent was left tethered and after decompressing her bladder fluid and urine, Mastisol and Steri-Str ips were to tether the stent to her introitus. The patient was then taken out of the lithotomy posit ion, awakened from general anesthesia, transferred to a stretcher, and then transferred [place] [facility] [place] in good condition. Complications: None. Discharge Disposition: We will plan to leave the ureteral stent until next Wednesday or Wednesday, at [facility] point it may be removed, which will allow the orifice to further dilate and any residual small aura culi fragments to pass. Her definitive ureteroscopy with laser lithotripsy may now be canceled and i nstead, followup may be established to investigate the urachal remnant observed by arranging an MRI o f the pelvis with and without contrast. SANJIV/WASHINGTONL Voice ID: [id number] Report ID: [id number]
[2022-04-16 15:02] VITALS: BP 102/72; TEMP 97
--- NOTE | 2022-04-16 15:51 | RAD REPORT ---
EXAM DESCRIPTION: RAD - Urethrocystogrphy Retrograde - 04/16/2022 1:39 pm CLINICAL HISTORY: RT STENT COMPARISON: No comparisons FINDINGS/IMPRESSION: Four intraoperative fluoroscopic images were submitted showing cannulation of t he right ureter, contrast injection, and placement of a right-sided double-J ureteral stent. Fluoro time: 9 seconds
== END 2022-04-16 14:55 | disposition home or self-care (01) ==
LOC: OR 10:41
PROVIDERS: ATTEND Urology
PROC: 0T768DZ Dilation of Right Ureter with Intraluminal Device, Via Natural or Artificial Opening Endoscopic (ICD-10-PCS; 2022-04-16)
PROC: 0TC68ZZ Extirpation of Matter from Right Ureter, Via Natural or Artificial Opening Endoscopic (ICD-10-PCS; principal; 2022-04-16 13:00)
DX: N20.1 Calculus of ureter (principal); N13.30 Unspecified hydronephrosis; R10.9 Unspecified abdominal pain
CPT/HCPCS: 88300; 82360; 74450; 51610; 53899; 52332; J2704; J2001; J1580; J2250; J1100; J1170; J7120; J2405 ×2; J3010

== ENCOUNTER 2022-04-17 10:47 | Emergency (ER) | payer OTHER ==
--- OUTSIDE RECORDS SUMMARY | 2022-04-17 10:51 | XMS REPORT | Continuity of Care Document ---
:1965 Author Organization [facility] t Address [address] [place] [address] Dr. [address]. [address] [place] [address] Care Team Providers Name Role Phone YIFAN LEGER Primary Care Physician Unavailable JEWEL SALAMANCA Attending Clinician Unavailable JOMAR SUN Attending Clinician Unavailable Jomar Dumas Attending Clinician JOAMR SUN Admitting Clinician Unavailable Payers Payer Name Policy Type Policy Number Effective Date Expiration Date S izzy [facility] [id number] 2019 00:00:00 Problems Condition Condition Condition Status Onset Resolution Last Treating Co mments Source Name Details Category Date Date Treatment Clinician Date Encounter Encounter Disease Active 2006-05 Overview: Univers for for 05-17 Formattin ity of routine routine 00:00: g of this [place] gynecologi gynecologi 00 note Me dical aura aura might be Branch examinatio examinatio different n n from the original. 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 right [facility] [id number] Right Problem Common flank pain [facility] [id number] Ureterolit Problem Com [facility] hiasis [facility] [id number] Kidney Problem Common stone [facility] Allergies, Adverse Reactions, Alerts Allergy Allergy Status Severity Reaction(s) Onset Inactive Treating Comm ents Source Name Type Date Date Clinician Penicill Drug Active Other - See Uni vers ins Allergy comments 08-26 ity of 00:00: [address] CODEINE DRUG Active Low Palpitations Uni vers INGREDI 08-26 ity of 00:00: [address] PENICILL Drug Active Low Palpitations Un rosa INS Class 08-26 ity of 00:00: [address] penicill penicill Active Unknown Commo n in V in V [facility] Social History Social Habit Start Date Stop Date Quantity Comments Source History of Tobacco Use Co mmon [facility] Sex Assigned At Com [place] [facility] Exposure to SARS-CoV-2 Not sure Un [facility] Smoking Status Start Date Stop Date Source Unknown if ever smoked [facility] Never Smoker Common [facility] nter Former Smoker 2022-04-08 00:00:00 2022-04-08 00:00:00 [facility] nter Medications Ordered Filled Start Stop Current Ordering Indication Dosage Frequency Signature Comments Components Source Medication Medication Date Date Medication? Clinician (SIG) Name Name traMADol traMADol 2021-05 No 1{table TID traMADol HCl 50 MG HCl 50 MG 06-16 t_as_ne HCl 50 MG 00:00: 00:00 eded} 00 :00 traMADol traMADol 2021-05 No 1{table TID traMADol HCl 50 MG HCl 50 MG 06-16 t_as_ne HCl 50 MG 00:00: 00:00 eded} 00 :00 morpHINE 2020-05- No 4mg 4 mg, Slow Un rosa injection 05-14 IV Push, ity of mg 00:00: 23:48 ONCE, 1 [place] 00 :00 dose, On Medical [place] Branch 03/13/21 at 1800, STAT ondansetron 2020-05 4mg 4 mg, Slow Univers (ZOFRAN 05-14 IV Push, ity of (PF)) 00:00: 23:48 ONCE, 1 [place] injection 4 00 :00 dose, On Medi aura mg Shaneka Branch 03/13/21 at 1800, LEATHA iopamidol 2020-05- No [id number] 100mL 100 mL, Univers (ISOVUE 05-13 Intravenou ity o f 370-500 mL) 22:50: 22:50 s, ONCE, 1 [place] injection 00 :00 dose, On Medica l 100 mL Shane[place] Branch 03/13/21 at 1700, Routine Levothyroxi 2020-05 Yes Take by Uni vers ne 125 mcg 05-13 mouth. ity of capsule 18:10: [place] 46 Medical Branch pantoprazol 2020-05 Yes 40mg Take 40 mg Univers e 05-13 by mouth ity of (PROTONIX) 18:10: daily. [...] Indication s: acute pain ondansetron 2020-05 Yes [id number] 4mg Take 1 Univers (ZOFRAN 05-13 tablet by ity of ODT) 4 mg 00:00: mouth [place] disintegrat 00 every 8 Medic al ing tablet (eight) Branch hours as needed for Nausea and Vomiting (N/V). DOCUSATE No 1 Cap Oral Un rosa CALCIUM [...] tramadol No tramadol Flomax Flomax No Flomax Flomax Flomax No Flomax Levothyroxi Levothyroxi No Levothyrox ne Sodium ne Sodium ine Sodium LISINOPRIL LISINOPRIL No LISINOPRIL tramadol tramadol No tramadol Nitroglycer Nitroglycer No Nitroglyce in in rin Flomax Flomax No Flomax Levothyroxi Levothyroxi No Levothyrox ne Sodium ne Sodium ine Sodium LISINOPRIL LISINOPRIL No LISINOPRIL tramadol tramadol No tramadol Nitroglycer Nitroglycer No Nitroglyce in in rin Vital Signs Vital Name Observation Time Observation Value Comments Source height 2022-04-15 13:45:00 66 [in_i] [facility] weight 2022-04-15 13:45:00 226.4 [lb_av] [facility] temperature 2022-04-15 13:45:00 97.5 [degF] [facility] bmi 2022-04-15 13:45:00 36.54 kg/m2 Common S pirit [facility] oximetry 2022-04-15 13:45:00 99 % Common S [facility] respiratory rate 2022-04-15 13:45:00 18 /min Comm on [facility] blood pressure 2022-04-15 13:45:00 139 mm[Hg] Common [facility] - systolic [facility] blood pressure 2022-04-15 13:45:00 71 mm[Hg] Common [facility] - diastolic [facility] oximetry 2022-04-08 16:00:00 98 % Common [facility] respiratory rate 2022-04-08 16:00:00 18 /min Comm on [facility] blood pressure 2022-04-08 16:00:00 136 mm[Hg] Common [facility] - systolic [facility] blood pressure 2022-04-08 16:00:00 87 mm[Hg] Common [facility] - diastolic [facility] height 2022-04-08 16:00:00 66 [in_i] Common [facility] weight 2022-04-08 16:00:00 222 [lb_av] [facility] temperature 2022-04-08 16:00:00 98.6 [degF] [facility] bmi 2022-04-08 16:00:00 35.83 kg/m2 Common S [facility] height 2022-03-18 16:15:00 66 [in_i] [facility] weight 2022-03-18 16:15:00 231.8 [lb_av] [facility] temperature 2022-03-18 16:15:00 98.1 [degF] Common S pirit [facility] bmi 2022-03-18 16:15:00 37.41 kg/m2 [facility] oximetry 2022-03-18 16:15:00 98 % Common S [facility] respiratory rate 2022-03-18 16:15:00 18 /min Comm on Spirit - [facility] blood pressure 2022-03-18 16:15:00 166 mm[Hg] Common [facility] - systolic [facility] blood pressure 2022-03-18 16:15:00 85 mm[Hg] Common [facility] - diastolic [facility] Heart rate 2021-03-13 23:45:00 73 /min [facility] Respiratory rate 2021-03-13 23:45:00 28 /min [facility] Oxygen saturation in 2021-03-13 23:45:00 100 /min [facility] Arterial blood by [facility] Pulse oximetry Branch Systolic blood 2021-03-13 22:45:00 146 mm[Hg] [facility] Diastolic blood 2021-03-13 22:45:00 95 mm[Hg] [facility] Body temperature 2021-03-13 21:23:00 37.06 Gloria [facility] Body weight 2021-03-13 21:23:00 117.89 kg [facility] Procedures Procedure Date / Time Performed Performing Clinician Nirmala gonzalez CT ABDOMEN PELVIS W 2021-03-13 22:54:38 Jomar Sun [facility] CONTRAST [facility] URINALYSIS 2021-03-13 22:42:00 Jomar Sun [facility] LIPASE 2021-03-13 22:32:00 Jomar Sun [facility] COMP. METABOLIC PANEL 2021-03-13 22:32:00 Jomar Sun [facility] ([id number]) [facility] CBC WITH DIFF 2021-03-13 22:32:00 Jomar Sun [facility] NOTICE OF PRIVACY 2021-03-13 21:10:56 Doctor Unassigned, No Univ [facility] PRACTICES Name Medical Branch Encounters Start End Encounter Admission Attending Care Care Encounter Source Date/Time Date/Time Type Type Clinicians Facility Department ID 2022-03-[address] [facility] [id number] Common 15:00:05 JEWEL Quiros16 [facility] 2022-04-15 2022-04-15 OFFICE STLMLC STLMLC [id number] Co mmon 00:00:00 00:00:00 VISIT EST Spir it PT LEVEL 3 - [facility] 2022-04-15 2022-04-15 (TEL) STLMLC STLMLC [id number] Co mmon 00:00:00 00:00:00 Spirit - [facility] 2022-04-08 2022-04-08 OFFICE STLMLC STLMLC [id number] Co mmon 00:00:00 00:00:00 VISIT EST Spir it PT LEVEL 3 - [facility] 2022-03-18 2022-03-18 OFFICE STLMLC STLMLC [id number] Co mmon 00:00:00 00:00:00 VISIT NEW Spir it PT LEVEL 3 - [facility] 2021-03-13 2021-03-13 Emergency X DINO [facility] ERT [id number] Univers 15:26:00 18:20:00 JOMAR marquez [facility] 2021-03-13 2021-03-[address] [facility] [id number] Univers 15:26:00 18:20:00 Jomar Olguin [place] [id number] i ty [facility] [id number] [facility] [id number] [address] Results Test Description Test Time Test Comments Results Result Comments Source COMP. METABOLIC PANEL (70579) 2021-03-13 23:02:31 Test Item Value Reference Range Interpretation Comme nts NA (test code = 2645285210) 136 mmol/L 135-145 K (test code = 9427312164) 4.9 mmol/L 3.5-5.0 CL (test code = 5077495843) 99 mmol/L 98-108 CO2 TOTAL (test code = 6758005816) 26 mmol/L 23-31 AGAP (test code = 8663192650) 2-16 BUN (test code = 6522298235) 15 mg/dL 7-23 GLUCOSE (test code = 5569286232) 97 mg/dL 70-110 CREATININE (test code = 0.67 mg/dL 0.50-1.04 0839115761) TOTAL BILI (test code = 0.5 mg/dL 0.1-1.2 5146058437) CALCIUM (test code = 0202864319) 10.6 mg/dL 8.6-10.6 T PROTEIN (test code = 0774188106) 8.0 g/dL 6.3-8.2 ALBUMIN (test code = 8907059186) 4.5 g/dL 3.5-5.0 ALK PHOS (test code = 9870870298) 75 U/L 34-122 ALTv (test code = 1742-6) 29 U/L 5-35 AST(SGOT) (test code = 7651020484) 41 U/L 13-40 H eGFR (test code = 7069932468) mL/min/1.73m2 TRACI (test code = TRACI) Association [...] tests). Lab Interpretation (test code = Abnormal 04681-7) [facility] Test Item Value Reference Range Interpretation Comments LIPASE (test code = 6523813212) 104 U/L 0-220 Lab Interpretation (test code = Normal 49682-2) [facility] WITH [id number] 22:41:06 Test Item Value Reference Range Interpretation [...] RDW-SD (test code = 41.5 fL 39.0-49.9 70234-9) RDW-CV (test code = 13.4 % 12.0-15.5 788-0) PLT (test code = See_Comment H [Automated 777-3) message] The sy stem which generated this result transmitted reference range : 166 - 358 10*3/ ?L. The reference r shemar was not used to interpret this result as normal/abnormal . MPV (test code = 10.4 fL 9.5-12.9 71637-3) NRBC/100 WBC (test See_Comment [Automat ed code = 2965115821) message] The system which generated this result transmitted reference range : 0.0 - 10.0 /100 WBCs. The refer ence range was not u sed to interpret th is result as normal/abnormal . NRBC x10^3 (test code <0.01 See_Comment [Auto mated = 0976873681) message] The s ystem which generated this result transmitted reference range : 10*3/?L. The reference range was not used to interpret this result as normal/abnormal . GRAN MAT (NEUT) % 77.1 % (test code = 770-8) IMM GRAN % (test code 0.40 % = 5334977902) LYMPH % (test code = 13.2 % 736-9) MONO % (test code = 7.1 % 5905-5) EOS % (test code = 1.4 % 713-8) BASO % (test code = 0.8 % 706-2) GRAN MAT x10^3(ANC) 7.14 10*3/uL 1.88-7.09 H (test code = 9324329467) IMM GRAN x10^3 (test 0.04 10*3/uL 0.00-0.06 code = 7617524182) LYMPH x10^3 (test code 1.22 10*3/uL 1.32-3.29 L = 731-0) MONO x10^3 (test code 0.66 10*3/uL 0.33-0.92 = 742-7) EOS x10^3 (test code = 0.13 10*3/uL 0.03-0.39 711-2) BASO x10^3 (test code 0.07 10*3/uL 0.01-0.07 = 704-7) Lab Interpretation Abnormal (test code = 33318-8) [facility]"
[2022-04-17 12:25] LABS: Urine Blood 3+ (Negative); Urine Glucose Trace (Negative); Urine Protein 3+ (Negative); Urine pH 6.5 (5.0-7.0)
[2022-04-17] MEDS ORDERED: CEFTRIAXONE 2000 MG/VIAL ONE (13:35)
[2022-04-17] MEDS ORDERED: MORPHINE 4 MG/ML SYR ONE (13:35)
[2022-04-17] MEDS ORDERED: NA CHLORIDE 0.9% 1,000 ML ONE (13:35)
[2022-04-17] MEDS ORDERED: KETOROLAC 30 MG/ML INJ ONE (13:35)
[2022-04-17 13:59] LABS: Absolute Lymphocytes (CBC) 1.2 K/uL (0.7-4.9); Hematocrit 43.8 % (36.0-45.0); Lymphocytes % 10.5 % (15.3-44.8); MCV 85.4 fL (80-100); MPV 8.4 fL (7.6-11.3); RBC Red Blood Cell Count 5.13 M/uL (3.86-4.86)
[2022-04-17 14:16] LABS: Albumin 3.8 g/dL (3.4-5.0); Bilirubin Total 0.5 mg/dL (0.2-1.0); Potassium 3.9 mmol/L (3.5-5.1); Protein, Total 7.3 g/dL (6.4-8.2)
--- NOTE | 2022-04-17 14:19 | ER ---
Nurse's Notes [facility] Name: Dory Salvador Age: 56 yrs Sex: Female : 1965 Arrival Date: 04/17/2022 Time: 10:49 Bed 20 Private MD: Diagnosis: UTI/ Urinary tract infection, site not specified Presentation: 04/17 12:05 Chief complaint: Patient states: Pt reports kidney stone removal and stent placed kb3 yesterday. Reports severe urethral pain since 0200. Coronavirus screen: Vaccine status: Patient reports receiving the 2nd dose of the covid vaccine. Client denies travel out of the [place] in the last 14 days. Ebola Screen: Patient negative for fever greater than or equal to 101.5 degrees Fahrenheit, and additional compatible Ebola Virus Disease symptoms Patient denies exposure to infectious person. Patient denies travel to an Ebola-affected area in the 21 days before illness onset. Initial Sepsis Screen: Does the patient meet any 2 criteria? No. Patient's initial sepsis screen is negative. Does the patient have a suspected source of infection? No. Patient's initial sepsis screen is negative. Risk Assessment: Do you want to hurt yourself or someone else? Patient reports no desire to harm self or others. Onset of symptoms was April 17, 2022 at 02:00. 12:05 Method Of Arrival: Ambulatory kb3 12:05 Acuity: JAZMIN 3 kb3 Triage Assessment: 12:07 General: Appears in no apparent distress. uncomfortable, Behavior is calm, cooperative. kb3 Pain: Complains of pain in pelvis Pain does not radiate. Pain currently is 10 out of 10 on a pain scale. : Reports pain urgency, urinary frequency. Historical: - Allergies: 12:07 PENICILLINS; kb3 - PMHx: 12:07 Hypertensive disorder; Kidney stone; ulcerative colitis; Hypothyroidism; kb3 - PSHx: 12:07 Gastric sleeve; Total abdominal hysterectomy; Gastric bypass; kb3 - Immunization history:: Adult Immunizations up to date, Client reports receiving the 2nd dose of the Covid vaccine. - Social history:: Smoking status: Reported history of juuling and/or vaping. Screenin:32 [facility] ED Fall Risk Assessment (Adult) History of falling in the last 3 months, kc6 including since admission No falls in past 3 months (0 pts) Confusion or Disorientation No (0 pts) Intoxicated or Sedated No (0 pts) Impaired Gait No (0 pts) Mobility Assist Device Used No (0 pt) Altered Elimination No (0 pt) Score/Fall Risk Level 0 - 2 = Low Risk. Abuse screen: Denies threats or abuse. Denies injuries from another. Nutritional screening: No deficits noted. Tuberculosis screening: No symptoms or risk factors identified. Fall Risk No fall in past 12 months (0 pts). No secondary diagnosis (0 pts). IV access (20 points). Ambulatory Aid- None/Bed Rest/Nurse Assist (0 pts). Gait- Normal/Bed Rest/Wheelchair (0 pts) Mental Status- Oriented to own ability (0 pts). Total Anguiano Fall Scale indicates No Risk (0-24 pts). Assessment: 14:05 General: Appears in no apparent distress. comfortable, Behavior is calm, cooperative, kc6 appropriate for age. Pain: Complains of pain in urethra Pain does not radiate. Pain currently is 6 out of 10 on a pain scale. at worst was 8 out of 10 on a pain scale. Quality of pain is described as sharp, stinging, Pain began gradually, Is continuous, Alleviated by nothing. Aggravated by increased activity, repositioning, Noted to be resistant to movement, Also complains of no other associated symptoms. Neuro: Correia Agitation-Sedation Scale (RASS): 0 - Alert and Calm Level of Consciousness is awake, alert, obeys commands, Oriented to person, place, time, situation, Appropriate for age. Cardiovascular: Heart tones S1 S2 present Capillary refill < 3 seconds. Respiratory: Airway is patent Trachea midline Respiratory effort is even, unlabored, Respiratory pattern is regular, symmetrical, Breath sounds are clear bilaterally. GI: Reports diarrhea, nausea, vomiting. : Urine is blood tinged, Reports burning with urination, urinary frequency. EENT: No signs and/or symptoms were reported regarding the EENT system. Derm: No signs and/or symptoms reported regarding the dermatologic system. Skin is intact, Skin is pink, warm \T\ dry. Musculoskeletal: No signs and/or symptoms reported regarding the musculoskeletal system. Circulation, motion, and sensation intact. Capillary refill < 3 seconds, Range of motion: intact in all extremities. Vital Signs: 12:05 BP 154 / 80; Pulse 64; Resp 20; Temp 98.6; Pulse Ox 100% ; Weight 102.06 kg; Height 5 kb3 ft. 6 in. (167.64 cm); Pain 10/10; 14:11 BP 131 / 92; Pulse 51; Resp 13 S; Temp 98.4(O); Pulse Ox 100% on R/A; Pain 6/10; kc6 12:05 Body Mass Index 36.32 (102.06 kg, 167.64 cm) kb3 ED Course: 10:49 Patient arrived in ED. rg4 11:10 Asim Rodriguez PA is PHCP. jmm 11:10 Jerzy Sweeney MD is Attending Physician. jmm 12:07 Triage completed. kb3 12:07 Arm band placed on right wrist. kb3 13:26 Tracy Healy, JEWEL is Primary Nurse. kc6 14:05 Inserted saline lock: 20 gauge in left antecubital area, using aseptic technique. Blood kc6 collected. 15:33 Patient has correct armband on for positive identification. Bed in low position. Call kc6 light in reach. Side rails up X2. Adult w/ patient. 15:33 No provider procedures requiring assistance completed. IV discontinued, intact, kc6 bleeding controlled, No redness/swelling at site. Pressure dressing applied. Administered Medications: 14:11 Drug: NS 0.9% 1000 ml Route: IV; Rate: 1 bolus; Site: left antecubital; kc6 17:21 Follow up: Response: No adverse reaction; IV Status: Completed infusion; IV Intake: kc6 1000ml 14:11 Drug: morphine 4 mg Route: IVP; Infused Over: 4 mins; Site: left antecubital; kc6 17:20 Follow up: Response: No adverse reaction; Pain is decreased; RASS: Alert and Calm (0) kc6 14:11 Drug: Ketorolac 30 mg Route: IVP; Site: left antecubital; kc6 17:20 Follow up: Response: No adverse reaction; Pain is decreased kc6 14:11 Drug: Rocephin (cefTRIAXone) 2 grams Route: IV; Rate: calculated rate; Site: left kc6 antecubital; 17:20 Follow up: Response: No adverse reaction; IV Status: Completed infusion; IV Intake: [id number] Medication: 15:34 VIS not applicable for this client. kc6 Intake: 17:20 IV: 10ml; Total: 10ml. kc6 17:21 IV: 1000ml; Total: 1010ml. kc6 Outcome: 14:18 Discharge ordered by . donald 15:33 Discharged to home ambulatory, with significant other. kc6 15:33 Condition: stable 15:33 Discharge instructions given to patient, significant other, Instructed on discharge instructions, follow up and referral plans. medication usage, Demonstrated understanding of instructions, follow-up care, medications, Prescriptions given X 2. 15:34 Patient left the ED. kc6 Signatures: Asim Rodriguez PA PA jmm Garcia, Rubi rg4 Tracy Healy, RN RN kc6 Марина Matos, RN RN kb3
--- NOTE | 2022-04-17 14:19 | EDPHYS ---
Physician Documentation [facility] Name: Dory Salvador Age: 56 yrs Sex: Female : 1965 Arrival Date: 04/17/2022 Time: 10:49 Bed 20 Private MD: ED Physician Jerzy Sweeney HPI: 04/17 11:03 This 56 yrs old Female presents to ER via Ambulatory with complaints of Urinary jmm Problem, Post Surgical Pain. 11:03 The patient presents with urinary symptoms. Is a 56-year-old female with history of jmm hypertension, ulcerative colitis, hypothyroidism that presents emerged department 1 day status post a ureteral stent placement. Patient states that she is having pain on urination with increased frequency. Denies vomiting. Denies fever. Historical: - Allergies: 12:07 PENICILLINS; kb3 - PMHx: 12:07 Hypertensive disorder; Kidney stone; ulcerative colitis; Hypothyroidism; kb3 - PSHx: 12:07 Gastric sleeve; Total abdominal hysterectomy; Gastric bypass; kb3 - Immunization history:: Adult Immunizations up to date, Client reports receiving the 2nd dose of the Covid vaccine. - Social history:: Smoking status: Reported history of juuling and/or vaping. ROS: 11:03 Constitutional: Negative for fever, chills, and weight loss, Cardiovascular: Negative jmm for chest pain, palpitations, and edema, Respiratory: Negative for shortness of breath, cough, wheezing, and pleuritic chest pain. 11:03 : Positive for urinary symptoms, pelvic pain, urinary frequency. 11:03 All other systems are negative. Exam: 11:03 Constitutional: This is a well developed, well nourished patient who is awake, alert, jmm and in no acute distress. Head/Face: atraumatic. Eyes: EOMI, no conjunctival erythema appreciated ENT: Moist Mucus Membranes Neck: Trachea midline, Supple Chest/axilla: Normal chest wall appearance and motion. Cardiovascular: Regular rate and rhythm. No edema appreciated Respiratory: Normal respirations, no respiratory distress appreciated Abdomen/GI: Non distended Back: Normal ROM Skin: General appearance color normal MS/ Extremity: Moves all extremities, no obvious deformities appreciated, no edema noted to the lower extremities Neuro: Awake and alert Psych: Behavior is normal, Mood is normal, Patient is cooperative and pleasant Vital Signs: 12:05 BP 154 / 80; Pulse 64; Resp 20; Temp 98.6; Pulse Ox 100% ; Weight 102.06 kg; Height 5 kb3 ft. 6 in. (167.64 cm); Pain 10/10; 14:11 BP 131 / 92; Pulse 51; Resp 13 S; Temp 98.4(O); Pulse Ox 100% on R/A; Pain 6/10; kc6 12:05 Body Mass Index 36.32 (102.06 kg, 167.64 cm) kb3 MDM: 11:03 Patient medically screened. [facility] 14:17 Data reviewed: vital signs, nurses notes. Counseling: I had a detailed discussion with [facility] the patient and/or guardian regarding: the historical points, exam findings, and any diagnostic results supporting the discharge/admit diagnosis, the need for outpatient follow up, to return to the emergency department if symptoms worsen or persist or if there are any questions or concerns that arise at home. 04/17 11:04 Order name: CBC with Diff; Complete Time: 14:17 [facility] 04/17 11:04 Order name: CMP; Complete Time: 14:17 [facility] 04/17 11:04 Order name: Lipase; Complete Time: 14:17 [facility] 04/17 12:25 Order name: Urine Dipstick-Ancillary; Complete Time: 12:26 [facility] 04/17 14:19 Order name: Urine Culture [facility] 04/17 11:04 Order name: IV Saline Lock; Complete Time: 14:11 [facility] 04/17 11:04 Order name: Labs collected and sent; Complete Time: 14:11 [facility] 04/17 11:05 Order name: Urine Dipstick-Ancillary (obtain specimen); Complete Time: 12:21 [facility] Administered Medications: 14:11 Drug: NS 0.9% 1000 ml Route: IV; Rate: 1 bolus; Site: left antecubital; 6 17:21 Follow up: Response: No adverse reaction; IV Status: Completed infusion; IV Intake: kc6 1000ml 14:11 Drug: morphine 4 mg Route: IVP; Infused Over: 4 mins; Site: left antecubital; 6 17:20 Follow up: Response: No adverse reaction; Pain is decreased; RASS: Alert and Calm (0) [facility] 14:11 Drug: Ketorolac 30 mg Route: IVP; Site: left antecubital; kc6 17:20 Follow up: Response: No adverse reaction; Pain is decreased 6 14:11 Drug: Rocephin (cefTRIAXone) 2 grams Route: IV; Rate: calculated rate; Site: left kc6 antecubital; 17:20 Follow up: Response: No adverse reaction; IV Status: Completed infusion; IV Intake: [id number] Disposition: 17:06 Co-signature as Attending Physician, Jerzy Sweeney MD I agree with the assessment and rt plan of care. Disposition Summary: 04/17/22 14:18 Discharge Ordered Location: Home [facility] Condition: Stable [facility] Diagnosis - UTI/ Urinary tract infection, site not specified [facility] Followup: [facility] - With: Private Physician - When: 2 - 3 days - Reason: Recheck today's complaints, Continuance of care, Re-evaluation by your physician Discharge Instructions: - Discharge Summary Sheet [facility] - Urinary Tract Infection, Adult [facility] Forms: - Medication Reconciliation Form [facility] - Thank You Letter [facility] - Antibiotic Education [facility] - Prescription Opioid Use [facility] Prescriptions: - cefpodoxime 200 mg Oral Tablet - take 1 tablet by ORAL route every 12 hours with food; 20 tablet; Refills: 0, [facility] Product Selection Permitted - Pyridium 200 mg Oral Tablet - take 1 tablet by ORAL route every 8 hours for 2 days; 6 tablet; Refills: 0, [facility] Product Selection Permitted Signatures: Dispatcher [employer] Asim Rivas PA PA jmm Campbell, Kaitlyn RN RN kc6 Марина Matos RN RN kb3 Jerzy Sweeney MD MD rt
[2022-04-17 15:47] VITALS: O2SAT 100
[2022-04-17 15:53] VITALS: BP 131/92; TEMP 98.4
== END 2022-04-17 15:34 | disposition home or self-care (01) ==
LOC: ER 10:47
DX: N39.0 Urinary tract infection, site not specified (principal); I10 Essential (primary) hypertension; Z88.0 Allergy status to penicillin
CPT/HCPCS: 96365; 85025; 36415; 81003; 83690; 80053; 96375; 99284; 96366; J7030; J0696

== ENCOUNTER 2022-06-25 14:42 | Emergency (ER) | payer OTHER ==
--- OUTSIDE RECORDS SUMMARY | 2022-06-25 14:46 | XMS REPORT | Continuity of Care Document ---
:1965 Author Organization [facility] t Address [address] [place] [address] Care Team Providers Name Role Phone YIFAN LEGER Primary Care Physician Unavailable JEWEL SALAMANCA Attending Clinician Unavailable JOMAR SUN Attending Clinician Unavailable Jomar Dumas Attending Clinician JOMAR SUN Admitting Clinician Unavailable Payers Payer Name Policy Type Policy Number Effective Date Expiration Date S izzy [place] [address] [id number] [facility] [id number] 2019 00:00:00 Problems Condition Condition Condition Status Onset Resolution Last Treating Co mments Source Name Details Category Date Date Treatment Clinician Date Encounter Encounter Disease Active 2006-05 Overview: Univers for for 05-17 Formattin ity of routine routine 00:00: g of this [place] gynecologi gynecologi note Me dical aura aura might be Branch examinatio examinatio different n n from the original. 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 S/p hysterect [id number] Diagnosis Term Transit [employer] Utility [id number] Renal Problem Common colic on [facility] right side [facility] [id number] Hydronephr Problem Com [facility] osis, [facility] right [facility] [id number] Right Problem Common flank pain [facility] Disorder Bladder Problem Common of urinary disorder, Spi rit bladder unspecifie - [facility] d [facility] [id number] Urachal Problem Commo n remnant [facility] [id number] Lesion of Problem Com [facility] bladder [facility] [id number] Ureterolit Problem Com [facility] hiasis [facility] [id number] Kidney Problem Common stone [facility] Allergies, Adverse Reactions, Alerts Allergy Allergy Status Severity Reaction(s) Onset Inactive Treating Comm ents Source Name Type Date Date Clinician Penicill Drug Active Other - See Uni vers ins Allergy comments 08-26 ity of 00:00: [address] CODEINE DRUG Active Low Palpitations Uni vers INGREDI 08-26 ity of 00:00: [address] PENICILL Drug Active Low Palpitations Un rosa INS Class 08-26 ity of 00:00: [address] penicill penicill Active Unknown Commo n in V in V [facility] Social History Social Habit Start Date Stop Date Quantity Comments Source History of Tobacco Use Co mmon [facility] Sex Assigned At Com [facility] Exposure to SARS-CoV-2 Not sure [facility] Smoking Status Start Date Stop Date Source Unknown if ever smoked Universit y [facility] Never Smoker Common [facility] Ce nter Former Smoker 2022-04-08 00:00:00 2022-04-08 00:00:00 [facility] nter Medications Ordered Filled Start Stop Current Ordering Indication Dosage Frequency Signature Comments Components Source Medication Medication Date Date Medication? Clinician (SIG) Name Name traMADol traMADol 2021-05- No 1{table TID traMADol HCl 50 MG HCl 50 MG 06-16 t_as_ne HCl 50 MG 00:00: 00:00 eded} 00 :00 traMADol traMADol 2021-05- No 1{table TID traMADol HCl 50 MG HCl 50 MG 06-16 t_as_ne HCl 50 MG 00:00: 00:00 eded} 00 :00 morpHINE 2020-05 4mg 4 mg, Slow Un rosa injection 4 05-14 IV Push, ity of mg 00:00: 23:48 ONCE, 1 [place] 00 :00 dose, On Medical [place] Branch 03/13/21 at 1800, STAT ondansetron 2020-05 4mg 4 mg, Slow Univers (ZOFRAN 05-14 IV Push, ity of (PF)) 00:00: 23:48 ONCE, 1 [place] injection 4 00 :00 dose, On Medi aura mg Shaneka Branch 03/13/21 at 1800, LEATHA iopamidol 2020-05 No [id number] 100mL 100 mL, Univers (ISOVUE 05-13 Intravenou ity o f 370-500 mL) 22:50: 22:50 s, ONCE, 1 [place] injection 00 :00 dose, On Medica l 100 mL Sahneka Branch 03/13/21 at 1700, Routine Levothyroxi 2020-05 Yes Take by Uni vers ne 125 mcg 11 mouth. ity of capsule 18:10: [place] 46 Medical Branch pantoprazol 2020-05 Yes 40mg Take 40 mg Univers e -11 by mouth ity of (PROTONIX) 18:10: daily. [place] 40 mg 46 Medical tablet Branch PREMARIN 2020-05- No None Univers ORAL 05-13 Entered ity of 16:14: 00:00 [place] 24 :00 Medical Branch traMADoL 50 2020-05 Yes [id number] 50mg Take 1 Univ ers mg tablet -11 tablet by ity o f 00:00: mouth [place] 00 every 6 Medical (six) Branch hours as needed for Pain (scale 7-10). Indication s: acute pain ondansetron 2020-05 Yes [id number] 4mg Take 1 Univers (ZOFRAN 1-11 tablet [...] 00:00: 00:00 prn pain [place] 00 :00 [facility] Branch PROPOXYPHEN 2020- No 1 tab PO U nivers E 65 MG 10-30 q4-6hrs ity of ORAL CAP 00:00: 00:00 pr[place] 00 [place]00 [facility] FERROUS 2020- No 1 Tab Oral [...] in in rin tramadol tramadol No tramadol LISINOPRIL LISINOPRIL No LISINOPRIL Levothyroxi Levothyroxi No Levothyrox ne Sodium ne Sodium ine Sodium Flomax Flomax No Flomax Nitroglycer Nitroglycer No Nitroglyce in in rin Vital Signs Vital Name Observation Time Observation Value Comments Source bmi 2022-05-20 16:00:00 35.7 kg/m2 [facility] oximetry 2022-05-20 16:00:00 100 % [facility] respiratory rate 2022-05-20 16:00:00 16 /min Comm on [facility] blood pressure 2022-05-20 16:00:00 151 mm[Hg] Common [facility] - systolic [facility] blood pressure 2022-05-20 16:00:00 83 mm[Hg] Common [facility] - diastolic [facility] height 2022-05-20 16:00:00 66 [in_i] [facility] weight 2022-05-20 16:00:00 221.2 [lb_av] [facility] temperature 2022-05-20 16:00:00 97.9 [degF] [facility] height 2022-04-15 13:45:00 66 [in_i] [facility] weight 2022-04-15 13:45:00 226.4 [lb_av] [facility] temperature 2022-04-15 13:45:00 97.5 [degF] [facility] bmi 2022-04-15 13:45:00 36.54 kg/m2 [facility] oximetry 2022-04-15 13:45:00 99 % [facility] respiratory rate 2022-04-15 13:45:00 18 /min Comm on [facility] blood pressure 2022-04-15 13:45:00 139 mm[Hg] Common [facility] systolic [facility] blood pressure 2022-04-15 13:45:00 71 mm[Hg] Common [facility] diastolic [facility] height 2022-04-08 16:00:00 66 [in_i] [facility] weight 2022-04-08 16:00:00 222 [lb_av] Common [facility] temperature 2022-04-08 16:00:00 98.6 [degF] [facility] bmi 2022-04-08 16:00:00 35.83 kg/m2 Common [facility] oximetry 2022-04-08 16:00:00 98 % Common [facility] respiratory rate 2022-04-08 16:00:00 18 /min Comm on [facility] blood pressure 2022-04-08 16:00:00 136 mm[Hg] Common [facility] - systolic [facility] blood pressure 2022-04-08 16:00:00 87 mm[Hg] Common [facility] diastolic [facility] height 2022-03-18 16:15:00 66 [in_i] Common [facility] weight 2022-03-18 16:15:00 231.8 [lb_av] Common [facility] temperature 2022-03-18 16:15:00 98.1 [degF] Common [facility] bmi 2022-03-18 16:15:00 37.41 kg/m2 Common [facility] oximetry 2022-03-18 16:15:00 98 % Common [facility] respiratory rate 2022-03-18 16:15:00 18 /min Comm on [facility] blood pressure 2022-03-18 16:15:00 166 mm[Hg] Common [facility] - systolic [facility] blood pressure 2022-03-18 16:15:00 85 mm[Hg] Common [facility] diastolic [facility] Heart rate 2021-03-13 23:45:00 73 /min [facility] Medical Branch Respiratory rate 2021-03-13 23:45:00 28 /min [facility] Oxygen saturation in 2021-03-13 23:45:00 100 /min [facility] blood by [facility] Pulse oximetry Branch Systolic blood 2021-03-13 22:45:00 146 mm[Hg] Univer sity of pressure [facility] Diastolic blood 2021-03-13 22:45:00 95 mm[Hg] Unive rsity [facility] Body temperature 2021-03-13 21:23:00 37.06 Gloria [facility] Body weight 2021-03-13 21:23:00 117.89 kg [facility] Procedures Procedure Date / Time Performed Performing Clinician Nirmala e CT ABDOMEN PELVIS W 2021-03-13 22:54:38 Jomar Sun [facility] CONTRAST [facility] URINALYSIS 2021-03-13 22:42:00 Jomar Sun [facility] LIPASE 2021-03-13 22:32:00 Jomar Sun [facility] COMP. METABOLIC PANEL 2021-03-13 22:32:00 Jomar Sun [facility] ([id number]) [facility] CBC WITH DIFF 2021-03-13 22:32:00 Jomar Sun [facility] NOTICE OF PRIVACY 2021-03-13 21:10:56 Doctor Unassigned, No Univ [facility] PRACTICES Name Medical Branch Encounters Start End Encounter Admission Attending Care Care Encounter Source Date/Time Date/Time Type Type Clinicians Facility Department ID 2022-03-18 Outpatient CHEIKH, STLMLC STLMLC [id number] Common 15:00:05 JEWEL [id number] [facility] 2022-05-20 2022-05-20 OFFICE STLMLC STLMLC [id number] Co mmon 00:00:00 00:00:00 VISIT Spirit ESTAB PT - [facility] LEVEL 2 [facility] 2022-04-15 2022-04-15 OFFICE STLMLC STLMLC [id number] Co mmon 00:00:00 00:00:00 VISIT EST Spir it PT LEVEL 3 - [facility] 2022-04-15 2022-04-15 (TEL) STLMLC STLMLC [id number] Co mmon 00:00:00 00:00:00 Spirit - [facility] 2022-04-08 2022-04-08 OFFICE STLMLC STLMLC [id number] Co mmon 00:00:00 00:00:00 VISIT EST Spir it PT LEVEL 3 - [facility] 2022-03-18 2022-03-18 OFFICE STLMLC STLMLC [id number] Co mmon 00:00:00 00:00:00 VISIT NEW Spir it PT LEVEL 3 - [facility] 2021-03-13 2021-03-13 Emergency X [facility] ERT [id number] Univers 15:26:00 18:20:00 JOMAR ity of [facility] [place] [facility] 2021-03-13 2021-03-13 Emergency [facility] [id number] Univers 15:26:00 18:20:00 Jomar Olguin [place] [id number] i ty [facility] [id number] [facility] [id number] [place] [address] Branch Results Test Description Test Time Test Comments Results Result Comments Source COMP. METABOLIC PANEL (74651) 2021-03-13 23:02:31 Test Item Value Reference Range Interpretation Comme nts NA (test code = 7152677682) 136 mmol/L 135-145 K (test code = 3668020562) 4.9 mmol/L 3.5-5.0 CL (test code = 7709017394) 99 mmol/L 98-108 CO2 TOTAL (test code = 8876227497) 26 mmol/L 23-31 AGAP (test code = 5056697977) 2-16 BUN (test code = 5453220686) 15 mg/dL 7-23 GLUCOSE (test code = 1470140965) 97 mg/dL 70-110 CREATININE (test code = 0.67 mg/dL 0.50-1.04 1291583947) TOTAL BILI (test code = 0.5 mg/dL 0.1-1.7 7216935300) CALCIUM (test code = 5937516692) 10.6 mg/dL 8.6-10.6 T PROTEIN (test code = 8003741385) 8.0 g/dL 6.3-8.2 ALBUMIN (test code = 1015470188) 4.5 g/dL 3.5-5.0 ALK PHOS (test code = 5788719045) 75 U/L 34-122 ALTv (test code = 1742-6) 29 U/L 5-35 AST(SGOT) (test code = 8565537595) 41 U/L 13-40 H eGFR (test code = 2693751527) mL/min/1.73m2 TRACI (test code = TRACI) Association [...] tests). Lab Interpretation (test code = Abnormal 29499-4) [facility] Test Item Value Reference Range Interpretation Comments LIPASE (test code = 3294091915) 104 U/L 0-220 Lab Interpretation (test code = Normal 64214-4) [facility] WITH [id number] 22:41:06 Test Item Value Reference Range Interpretation Comments WBC (test code = See_Comment [Automated 5990-2) message] The sy stem which generated this [...] RDW-SD (test code = 41.5 fL 39.0-49.9 13961-2) RDW-CV (test code = 13.4 % 12.0-15.5 788-0) PLT (test code = See_Comment H [Automated 777-3) message] The sy stem which generated this result transmitted reference range : 166 - 358 10*3/ ?L. The reference r shemar was not used to interpret this result as normal/abnormal . MPV (test code = 10.4 fL 9.5-12.9 55880-0) NRBC/100 WBC (test See_Comment [Automat ed code = 0035196496) message] The system which generated this result transmitted reference range : 0.0 - 10.0 /100 WBCs. The refer ence range was not u sed to interpret th is result as normal/abnormal . NRBC x10^3 (test code <0.01 See_Comment [Auto mated = 6857307884) message] The s ystem which generated this result transmitted reference range : 10*3/?L. The reference range was not used to interpret this result as normal/abnormal . GRAN MAT (NEUT) % 77.1 % (test code = 770-8) IMM GRAN % (test code 0.40 % = 9793814926) LYMPH % (test code = 13.2 % 736-9) MONO % (test code = 7.1 % 5905-5) EOS % (test code = 1.4 % 713-8) BASO % (test code = 0.8 % 706-2) GRAN MAT x10^3(ANC) 7.14 10*3/uL 1.88-7.09 H (test code = 4069337043) IMM GRAN x10^3 (test 0.04 10*3/uL 0.00-0.06 code = 2651312418) LYMPH x10^3 (test code 1.22 10*3/uL 1.32-3.29 L = 731-0) MONO x10^3 (test code 0.66 10*3/uL 0.33-0.92 = 742-7) EOS x10^3 (test code = 0.13 10*3/uL 0.03-0.39 711-2) BASO x10^3 (test code 0.07 10*3/uL 0.01-0.07 = 704-7) Lab Interpretation Abnormal (test code = 85244-5) [facility]"
[2022-06-25 15:27] LABS: Absolute Lymphocytes (CBC) 0.7 K/uL (0.7-4.9); Lymphocytes % 13.6 % (15.3-44.8); MPV 8.3 fL (7.6-11.3); RBC Red Blood Cell Count 4.89 M/uL (3.86-4.86)
[2022-06-25 15:48] LABS: Albumin 3.5 g/dL (3.4-5.0); Bilirubin Total 0.3 mg/dL (0.2-1.0); Potassium 4.2 mmol/L (3.5-5.1); Protein, Total 7.1 g/dL (6.4-8.2)
--- NOTE | 2022-06-25 16:50 | RAD REPORT ---
EXAM DESCRIPTION: CTAbdomen Pelvis W Contrast - 06/25/2022 4:35 pm CLINICAL HISTORY: ABD PAIN COMPARISON: Abdomen Pelvis Wo Contrast dated 04/14/2022; [place] Protocol dated 03/13/2022 TECHNIQUE: CT of the abdomen and pelvis was performed. All CT scans are performed using dose optimization technique as appropriate and may include automated exposure control or mA/KV adjustment according to patient size. FINDINGS: Lower chest: Small hiatal hernia. Moderately thickened distal esophagus. Liver: No acute abnormality or suspicious lesions. Biliary: Cholecystectomy. Stomach: Matilda-en-Y gastric bypass. Possible thickening at the gastrojejunostomy. Duodenum: No significant focal abnormality. Pancreas: No significant abnormality. Spleen: No significant abnormality. Adrenal: No suspicious lesions. Kidney/ureter: No hydronephrosis. No renal calculi. Too small to characterize and/or benign appearing renal lesions are noted. Retroperitoneum: No retroperitoneal adenopathy. Vascular: No aneurysm. Atherosclerosis. Bowel: No significant focal abnormality. Normal appendix. Peritoneum: No ascites or free air. Bladder: Grossly unremarkable. Reproductive: No adnexal masses. Bones: No acute fracture. Other: n/a IMPRESSION: No acute intra-abdominal or pelvic finding. Status post Matilda-en-Y gastric bypass. Modera tely thickened distal esophagus may reflect esophagitis. A small hiatal hernia is also noted. There i s also some thickening at the gastrojejunostomy. Endoscopy could better evaluate these findings.
--- NOTE | 2022-06-25 17:34 | EDPHYS ---
Physician Documentation [facility] Name: Dory Salvador Age: 57 yrs Sex: Female : 1965 Arrival Date: 06/25/2022 Time: 14:43 Bed 5 Private MD: Dk Todd H ED Physician Pb Carney HPI: 06/25 15:45 This 57 yrs old Female presents to ER via Ambulatory with complaints of Epigastric Pain.ms3 15:45 57-year-old female with past medical history of hypertension, hypothyroid, kidney ms3 stone, ulcerative colitis presents for epigastric abdominal pain that began today at 1 PM after eating C. Patient states she has had diarrhea for the last 2 days. Patient states the pain is currently a 4/10, at its worst the pain was a 8/10 and stabbing. Patient notes she is also had lower abdominal cramping with the diarrhea.. Historical: - Allergies: 14:50 PENICILLINS; iw - PMHx: 14:50 Hypertensive disorder; Hypothyroidism; Kidney stone; ulcerative colitis; iw 14:51 Lupus erythematosus; RA; iw - PSHx: 14:50 Gastric Bypass; gastric sleeve; Total abdominal hysterectomy; iw - Immunization history:: Adult Immunizations unknown. - Social history:: Smoking status: unknown. ROS: 15:45 Constitutional: Negative for fever, and chills. ENT: Negative for injury, pain, and ms3 discharge, Neck: Negative for injury, pain, and swelling, Cardiovascular: Negative for chest pain, and palpitations. Respiratory: Negative for shortness of breath, cough, wheezing, and pleuritic chest pain. 15:45 Abdomen/GI: Positive for abdominal pain, nausea, diarrhea. 15:45 All other systems are negative. Exam: 15:45 Constitutional: This is a well developed, well nourished patient who is awake, alert, ms3 and in no acute distress. Head/Face: Normocephalic, atraumatic. Neck: Trachea midline, no cervical lymphadenopathy. Supple, full range of motion without nuchal rigidity, or vertebral point tenderness. No Meningismus. Chest/axilla: Normal chest wall appearance and motion. Nontender with no deformity. Cardiovascular: Regular rate and rhythm with a normal S1 and S2. No gallops, murmurs, or rubs. Normal PMI, no JVD. No pulse deficits. Respiratory: Lungs have equal breath sounds bilaterally, clear to auscultation and percussion. No rales, rhonchi or wheezes noted. No increased work of breathing, no retractions or nasal flaring. 15:45 ECG was reviewed by the Attending Physician. 15:45 Abdomen/GI: Inspection: abdomen appears normal, Bowel sounds: normal, Palpation: mild abdominal tenderness, in the epigastric area, right lower quadrant and left lower quadrant. Vital Signs: 14:51 BP 136 / 87; Pulse 78; Resp 16; Temp 98.3; Pulse Ox 99% on R/A; Weight 95.25 kg; Height iw 5 ft. 6 in. (167.64 cm); Pain 4/10; 16:13 BP 143 / 89; Pulse 62; Resp 19 S; Pulse Ox 100% on R/A; kc6 17:02 BP 132 / 80; Pulse 65; Resp 21 S; Pulse Ox 100% on R/A; kc6 14:51 Body Mass Index 33.89 (95.25 kg, 167.64 cm) iw MDM: 14:58 Patient medically screened. ms3 18:38 Differential diagnosis: bowel obstruction, gastritis, gastroesophageal reflux disease, ms3 non-specific abd pain, pancreatitis. Data reviewed: vital signs, nurses notes, lab test result(s), radiologic studies, CT scan, and as a result, I will discharge patient. Independent interpretation of the following test(s) in the Emergency Department EKG: See my EKG interpretation above psychiatric tech: rate is 62 beats/min, Rhythm is normal sinus rhythm, regular, with no ectopy, Interpretation: normal rate, normal rhythm. Counseling: I had a detailed discussion with the patient and/or guardian regarding: the historical points, exam findings, and any diagnostic results supporting the discharge/admit diagnosis, lab results, radiology results, the need for outpatient follow up, to return to the emergency department if symptoms worsen or persist or if there are any questions or concerns that arise at home. ED course: Discussed labs, imaging, physical exam findings with patient. Patient to follow-up with Dr. Rubio in 2 to 3 days. Patient understands and agrees with plan. All questions were answered. Return precautions discussed include worsening symptoms, or any other concerns. On reevaluation patient is improved, alert and oriented x4, no apparent distress, nontoxic, ambulatory in emergency department. 06/25 14:58 Order name: CBC with Diff ms3 06/25 14:58 Order name: CMP ms3 06/25 14:58 Order name: Lipase ms3 06/25 15:31 Order name: CBC with Automated Diff; Complete Time: 16:59 EDMS 06/25 15:48 Order name: Comprehensive Metabolic Panel; Complete Time: 16:59 EDMS 06/25 15:48 Order name: Lipase; Complete Time: 16:59 EDMS 06/25 14:58 Order name: CT Abd/Pelvis - IV Contrast Only ms3 06/25 14:58 Order name: IV Saline Lock; Complete Time: 15:17 ms3 06/25 14:58 Order name: Labs collected and sent; Complete Time: 15:17 ms3 06/25 14:58 Order name: EKG; Complete Time: 14:58 ms3 06/25 14:58 Order name: EKG - Nurse/Tech; Complete Time: 15:45 ms3 06/25 16:51 Order name: CT; Complete Time: 16:59 EDMS EC:45 Rate is 67 beats/min. Rhythm is regular. QRS [place] is Normal. MS interval is normal. QRS ms3 interval is normal. Clinical impression: Normal ECG. Interpreted by me. Reviewed by me. Administered Medications: No medications were administered Disposition Summary: 06/25/22 17:33 Discharge Ordered Location: Home ms3 Condition: Stable ms3 Diagnosis - Upper abdominal pain, unspecified ms3 - Lower abdominal pain, unspecified ms3 Followup: ms3 - With: Dk Todd MD - When: 2 - 3 days - Reason: Recheck today's complaints Discharge Instructions: - Discharge Summary Sheet ms3 - Abdominal Pain, Adult ms3 Forms: - Medication Reconciliation Form ms3 - Thank You Letter ms3 - Antibiotic Education ms3 - Prescription Opioid Use ms3 Signatures: Dispatcher [employer] Maria Del Carmen Chapman, RN Pb Kinney DO DO ms3 Tracy Healy RN RN kc6
--- NOTE | 2022-06-25 17:34 | ER ---
Nurse's Notes [facility] Name: Dory Salvador Age: 57 yrs Sex: Female : 1965 Arrival Date: 06/25/2022 Time: 14:43 Bed 5 Private MD: Dk Todd H Diagnosis: Upper abdominal pain, unspecified;Lower abdominal pain, unspecified Presentation: 06/25 14:49 Chief complaint: Patient states: diarrhea X 2 days, nausea, epigastric pain after iw eating soup this afternoon. Coronavirus screen: At this time, the client does not indicate any symptoms associated with coronavirus-19. Ebola Screen: Patient negative for fever greater than or equal to 101.5 degrees Fahrenheit, and additional compatible Ebola Virus Disease symptoms Patient denies exposure to infectious person. Patient denies travel to an Ebola-affected area in the 21 days before illness onset. No symptoms or risks identified at this time. Initial Sepsis Screen: Does the patient meet any 2 criteria? No. Patient's initial sepsis screen is negative. Does the patient have a suspected source of infection? No. Patient's initial sepsis screen is negative. Risk Assessment: Do you want to hurt yourself or someone else? Patient reports no desire to harm self or others. Onset of symptoms was June 23, 2022. 14:49 Method Of Arrival: Ambulatory iw 14:49 Acuity: JAZMIN 3 iw Historical: - Allergies: 14:50 PENICILLINS; iw - PMHx: 14:50 Hypertensive disorder; Hypothyroidism; Kidney stone; ulcerative colitis; iw 14:51 Lupus erythematosus; RA; iw - PSHx: 14:50 Gastric Bypass; gastric sleeve; Total abdominal hysterectomy; iw - Immunization history:: Adult Immunizations unknown. - Social history:: Smoking status: unknown. Screenin:30 [facility] ED Fall Risk Assessment (Adult) History of falling in the last 3 months, kc6 including since admission No falls in past 3 months (0 pts) Confusion or Disorientation No (0 pts) Intoxicated or Sedated No (0 pts) Impaired Gait No (0 pts) Mobility Assist Device Used No (0 pt) Altered Elimination No (0 pt) Score/Fall Risk Level 0 - 2 = Low Risk Oriented to surroundings, Maintained a safe environment, Educated pt \T\ family on fall prevention, incl call for assistance when getting out of bed, Assessed \T\ reinforced patient's understanding of fall precautions, Hourly rounding (assess needs \T\ fall precautionary measures) done. Abuse screen: Denies threats or abuse. Denies injuries from another. Nutritional screening: No deficits noted. Tuberculosis screening: No symptoms or risk factors identified. Assessment: 15:36 General: Appears in no apparent distress. comfortable, Behavior is calm, cooperative, kc6 appropriate for age. Pain: Complains of pain in epigastric area Pain does not radiate. Pain currently is 4 out of 10 on a pain scale. Quality of pain is described as sharp, shooting, Is continuous, Also complains of no other associated symptoms. Neuro: [place] Agitation-Sedation Scale (RASS): 0 - Alert and Calm Level of Consciousness is awake, alert, obeys commands, Oriented to person, place, time, situation, Appropriate for age. Cardiovascular: Capillary refill < 3 seconds Rhythm is sinus rhythm. Respiratory: Airway is patent Trachea midline Respiratory effort is even, unlabored, Respiratory pattern is regular, symmetrical. GI: Abdomen is flat, non-distended, Bowel sounds present X 4 quads. Abd is soft X 4 quads Abdomen is tender to palpation in epigastric area Reports diarrhea, nausea, Patient currently denies vomiting. : No signs and/or symptoms were reported regarding the genitourinary system. EENT: No signs and/or symptoms were reported regarding the EENT system. Derm: No signs and/or symptoms reported regarding the dermatologic system. Skin is intact, Skin is pink, warm \T\ dry. Musculoskeletal: No signs and/or symptoms reported regarding the musculoskeletal system. Circulation, motion, and sensation intact. Capillary refill < 3 seconds, Range of motion: intact in all extremities. 16:13 Reassessment: Patient appears in no apparent distress at this time. No changes from kc6 previously documented assessment. Patient and/or family updated on plan of care and expected duration. Pain level reassessed. Patient is alert, oriented x 3, equal unlabored respirations, skin warm/dry/pink. 16:29 Reassessment: pt transported to CT via stretcher. vg1 17:02 Reassessment: Patient appears in no apparent distress at this time. No changes from kc6 previously documented assessment. Patient and/or family updated on plan of care and expected duration. Pain level reassessed. Patient is alert, oriented x 3, equal unlabored respirations, skin warm/dry/pink. Vital Signs: 14:51 BP 136 / 87; Pulse 78; Resp 16; Temp 98.3; Pulse Ox 99% on R/A; Weight 95.25 kg; Height iw 5 ft. 6 in. (167.64 cm); Pain 4/10; 16:13 BP 143 / 89; Pulse 62; Resp 19 S; Pulse Ox 100% on R/A; kc6 17:02 BP 132 / 80; Pulse 65; Resp 21 S; Pulse Ox 100% on R/A; kc6 14:51 Body Mass Index 33.89 (95.25 kg, 167.64 cm) iw ED Course: 14:43 Patient arrived in ED. am2 14:44 Dk Todd MD is Private Physician. am2 14:45 Pb Carney DO is Attending Physician. ms3 14:50 Triage completed. iw 14:51 Arm band placed on. iw 15:16 Inserted saline lock: 20 gauge in left antecubital area, using aseptic technique. Blood ah1 collected. 15:16 CBC with Diff Sent. ah1 15:16 CMP Sent. ah1 15:16 Lipase Sent. 1 15:22 Tracy Healy RN is Primary Nurse. kc6 15:30 Patient has correct armband on for positive identification. Bed in low position. Call kc6 light in reach. Side rails up X 1. Adult w/ patient. 17:32 Dk Todd MD is Referral Physician. ms3 17:41 No provider procedures requiring assistance completed. IV discontinued, intact, kc6 bleeding controlled, No redness/swelling at site. Pressure dressing applied. Administered Medications: No medications were administered Medication: 17:41 VIS not applicable for this client. kc6 Outcome: 17:33 Discharge ordered by . ms3 17:41 Discharged to home ambulatory, with significant other. kc6 17:41 Condition: stable 17:41 Discharge instructions given to patient, Instructed on discharge instructions, follow up and referral plans. Demonstrated understanding of instructions, follow-up care. 17:42 Patient left the ED. kc6 Signatures: Maria Del Carmen Alegria RN RN iw Smitha Rai am2 Balbina Bowers RN RN vg1 Pb Carney DO DO ms3 Tracy Healy RN RN kc6 Micaela Goldstein 1 Corrections: (The following items were deleted from the chart) 14:52 14:51 Pulse 78bpm; Resp 16bpm; Pulse Ox 99% RA; Temp 98.3F; iw iw
[2022-06-25 18:33] VITALS: TEMP 98.3
[2022-06-25 18:34] VITALS: O2SAT 100
[2022-06-25 18:35] VITALS: BP 132/80
--- NOTE | 2022-06-26 13:21 | EKG ---
Test Date: 2022-06-25 Test Time: 15:43:34 Automotive Painter: ROD MEASUREMENT RESULTS: Intervals: Rate: 67 MA: 178 QRSD: 94 QT: 428 QTc: 452 Aubrey: P: 57 MA: 178 QRS: 60 T: 36 INTERPRETIVE STATEMENTS: Normal sinus rhythm Cannot rule out Anterior infarct, age undetermined Abnormal ECG Compared to ECG 03/13/2022 23:03:35 Sinus bradycardia no longer present Myocardial infarct finding still present Electronically Signed On 06-26-22 13:18:25 [facility]MIN[facility] INTERN by Elder Mcmahan
== END 2022-06-25 17:42 | disposition home or self-care (01) ==
LOC: ER 14:42
DX: R10.13 Epigastric pain (principal); R10.31 Right lower quadrant pain; R10.32 Left lower quadrant pain; R19.7 Diarrhea, unspecified; I10 Essential (primary) hypertension; Z88.0 Allergy status to penicillin; Z98.84 Bariatric surgery status
CPT/HCPCS: 93005; 85025; 36415; 83690; 80053; 74177; 99284; Q9967